=== PATIENT | female | born 1980 | race Caucasian/White ===

== ENCOUNTER 2022-04-12 15:28 | Outpatient (REF) | payer MEDICAID, SELFPAY ==
[2022-04-12 20:13] LABS: HGB 13.1 g/dL (11.2-15.7); MCH 30.5 pg (27.0-33.0); MCHC 33.6 % (32.0-36.0); MCV 91 fL (80-95); MPV 9.5 fL (8.0-11.0); Platelet Count 379 10^3/uL (130-400); RBC 4.29 10^6/uL (3.93-5.22); RDW 12.3 % (11.7-14.6); RDW-SD 40.9 fL; WBC 7.52 10^3/uL (4.4-10.8)
[2022-04-12 20:31] LABS: Anion Gap 9.1 mmol/L (3-11); BUN 9 mg/dL (7-18); CO2 26.9 mmol/L (21.0-32.0); CREATININE 0.8 mg/dL (0.55-1.02); Calcium 9.1 mg/dL (8.5-10.1); Calculated LDL 128 mg/dL (<100); Chloride 104 mmol/L (98-107); Cholesterol 194 mg/dL (<200); Glucose 93 mg/dL (74-106); HDL Cholesterol 47 mg/dL (40-60); Sodium 140 mmol/L (136-145); Triglyceride 95 mg/dL (<150)
== END 2022-04-12 15:29 | disposition home or self-care (01) ==
LOC: NCHCN 15:28
PROVIDERS: Visit Provider Nurse Practitioner Family
DX: E66.9 Obesity, unspecified (principal); Z86.32 Personal history of gestational diabetes; Z87.59 Personal history of other complications of pregnancy, childbirth and the puerperium; I10 Essential (primary) hypertension
CPT/HCPCS: 80048; 80061; 85027

== ENCOUNTER 2022-06-06 10:36 | Outpatient (REF) | payer MEDICAID, SELFPAY ==
--- NOTE | 2022-06-06 09:48 | PAPFT_PTH ---
PATIENT: Aurelia Marcelo LOC: [facility]#:[id number] AGE/SX: 41/F ROOM: RE06/06/[address]: Angeles Espinal : 1980 BED: DIS: 06/06/2022 SPEC #: [id number] RECD: 06/06/22 15:17 STATUS: JESSICA REChelsy #: [id number] JULISSA: 06/06/22 09:[address]: Angeles Espinal DEPT: [facility] Cytology RECD BY: Gloria Burroughs Tissues: 1 - CX/ENDOCX FOR PAP SMEARS Procedures: PAP THIN PREP/UVM Screening HPV DNA PROBE Comments: [id number]
--- OUTSIDE RECORDS SUMMARY | 2022-06-06 10:45 | XMS_ITS | Encounter Summary ---
:1980 Author Organization [facility] Address [address] [place] [address] Care Team Providers Name Role Phone EdesvilleKate solorzano VANDANA Primary Care Provider Encounter Details Date Type Department Care Team Description 12/04/2015 Orders Only Obstetrics and Pschirrer, E Multigravida of [place] [facility] [place] advanced maternal age, [facility] uns pec[address] trimester [address] [place] OBSTETRICS & [id number] GYNECOLOGY [phone] [place] [id number] Social History Tobacco Use Types Packs/Day Years Used Date Never Assessed Sex Assigned at Date Recorded Not on file documented as of this encounter Plan of Treatment Not on filedocumented as of this encounter Results US OB Detailed Morphology (12/29/2015 11:54 AM EST) Anatomical Region Laterality Modality Pelvis, Abdomen Ultrasound Specimen (Source) Anatomical Collection Method Collection Time Re ceived Time Location / / Volume Laterality 12/29/2015 11:19 AM EST Impressions 12/29/2015 2:45 PM EST Impression 2nd Trimester - Detailed Morphology - S ummary Single intrauterine with a ge stational age of 18w 4d based on LMP (08/21/15). Composite age based on the current ultr asound alone is 19w 3d. Current growth parameters are consisten t with prior dating indicating normal growth. Amniotic fluid volume is appropriate fo r gestational age. Detailed anatomic evaluation was performed and no structural abnormalities are noted. I ??viewed the images and agree with norma brown above interpretation. ?Sherly Sorto MD Electronically Signed Final Report ?? 02:45 pm Narrative 12/29/2015 2:45 PM EST OBSTETRICS REPORT ?(Signed Final 12/29/2015 02:45 pm) Patient Info ID #: ? [id number] ?: ??[birth year] (35 yrs) Name: ? AURELIA MARCELO ?Visit Date: 12/29/2015 11:19 am Performed By Performed By: ? Anitha Torres RDMS Attending: ?Macario ANDINO, Ashleigh Gibson. Referred By: ?ROMAN LENZ MD Service(s) Provided ??[facility] - Detailed Morphology - Genetics - [id number] Indications ??MORPH, AMA; E - Coordinates with ??gestational age or more than one week OB History Blood Type: ?? A- ? Height: ??5' 11 ??Weight: ?? 198 ? BMI: ??27.61 Evaluation Num Of Fetuses: ? 1 Heart ? 141 Rate(bpm): Cardiac Activity: ?? Observed, normal r hythm Presentation: ? Cephalic Placenta: ? Anterior P. Cord Insertion: ??Within Normal Limi ts Amniotic Fluid YSABEL FV: ?Appropriate for gestati onal age -------- Biometry -------- BPD: ?44.3 ??mm ? G.Age: ?? 19w 3d OFD: ?58.2 ??mm HC: ?163.5 ??mm ? G.Age: ?? 19w 1d AC: ?145.7 ??mm ? G.Age: ?? 19w 6d FL: ? 29.1 ??mm ? G.Age: ?? 19w 0d HUM: ?29.7 ??mm ? G.Age: ?? 19w 5d CER: ?20.2 ??mm ? G.Age: ?? 19w 1d NFT: ? 3.4 ??mm NB: ?5.0 ??mm LV: ?6.6 ??mm CM: ?3.7 ??mm CI: ?76.1 ??% ? 70 - 86 FL/HC: ? 17.8 ??% ? 16.1 - 18.3 HC/AC: ? 1.12 ?1.09 - 1.39 FL/BPD: ?65.7 ??% FL/AC: ? 20.0 ??% ? 20 - 24 Est. FW: ? 291 ?? gm ?? 0 lb 10 oz Gestational Age LMP: ? 18w 4d ?Date : ??08/21/15 ? FRENCH: ?? 05/27/16 U/S Today: ? 19w 3d ?FRENCH: ?? 05/21/16 Best: ?18w 4d ?? Det. By: ??LMP ??(08/21/15) ?FRENCH: ?? 05/27/16 Targeted Anatomy Central Nervous System Calvarium: ?Within Norm al Limits Intracranial: ? Within Normal Limits Cavum: ?Visualized Lat. Ventricles: ?Within Normal Limits Cerebellum: ? Within Renetta l Limits Choroid Plexus: ? Within Normal Limits Cisterna Magna: ? Within Normal Limits Spine Cervical: ? Visualized Thoracic: ? Visualized Lumbar: ? Visualized Sacral: ? Visualized Head/Neck Face: ? Within No rmal Limits Nuchal Fold: ?Within Renetta l Limits Eyes: ? Visualize d Profile: ?Visualized Thorax Four Chamber: ? Within Normal Limits Cardiac Motion: ? Normal Rhythm R Outflow Tract: ?Visualized L Outflow Tract: ?Visualized Cardiac [place]: ? Visualized 3 Vessel View: ?Visualized Diaphragm: ?Visualized Abdomen Ventral Wall: ? Visualized Stomach: ?Visualized Lt Kidney: ?Visualized Rt Kidney: ?Visualized Bladder: ?Visualized Extremities Lt Humerus: ? Visualized Rt Humerus: ? Visualized Lt Forearm: ? Visualized Rt Forearm: ? Visualized Lt Hand: ?Visualized Rt Hand: ?Visualized Lt Femur: ? Visualized Rt Femur: ? Visualized Lt Lower Leg: ? Visualized Rt Lower Leg: ? Visualized Lt Foot: ?Visualized Rt Foot: ?Visualized Other Umbilical Cord: ? 3 vessel cord Cord Insertion: ? WIthin Normal Limits Comment: ? Nasal Bone: Visualize d Cervix Uterus Adnexa Left Ovary Not visualized Right Ovary Not visualized Procedure Note Sherly Sorto MD - 12/29/2015Form atting of this note might be different from the original. OBSTETRICS REPORT (Signed Final 016 02:45 pm) Patient Info ID #: [id number] : [birth year] (35 y rs) Name: AURELIA MARCELO Visit Date: 12/29 11:19 am Performed By Performed By: Anitha Torres RDMS Attending: Sherly Sorto MD Referred By: ROMAN LENZ MD Service(s) Provided [facility] - Detailed Morphology - Genetics - [id number] Indications MORPH, AMA; E - Coordinates with gestational age or more than one week OB History Blood Type: A- Height: 5'11 Weight: 19 8 BMI: 27.61 Evaluation Num Of Fetuses: 1 Heart 141 Rate(bpm): Cardiac Activity: Observed, normal rhyt hm Presentation: Cephalic Placenta: Anterior P. Cord Insertion: Within Normal Limits Amniotic Fluid YSABEL FV: Appropriate for gestational age -------- Biometry -------- BPD: 44.3 mm G.Age: 19w 3d OFD: 58.2 mm HC: 163.5 mm G.Age: 19w 1d AC: 145.7 mm G.Age: 19w 6d FL: 29.1 mm G.Age: 19w 0d HUM: 29.7 mm G.Age: 19w 5d CER: 20.2 mm G.Age: 19w 1d NFT: 3.4 mm NB: 5.0 mm LV: 6.6 mm CM: 3.7 mm CI: 76.1 % 70 - 86 FL/HC: 17.8 % 16.1 - 18.3 HC/AC: 1.12 1.09 - 1.39 FL/BPD: 65.7 % FL/AC: 20.0 % 20 - 24 Est. FW: 291 gm 0 lb 10 oz Gestational Age LMP: 18w 4d Date: 08/21/15 FRENCH: 6 U/S Today: 19w 3d FRENCH: 05/21/16 Best: 18w 4d Det. By: LMP (08/21/15) ED Targeted Anatomy Central Nervous System Calvarium: Within Normal Limits Intracranial: Within Normal Limits Cavum: Visualized Lat. Ventricles: Within Normal Limits Cerebellum: Within Normal Limits Choroid Plexus: Within Normal Limits Cisterna Magna: Within Normal Limits Spine Cervical: Visualized Thoracic: Visualized Lumbar: Visualized Sacral: Visualized Head/Neck Face: Within Normal Limits Nuchal Fold: Within Normal Limits Eyes: Visualized Profile: Visualized Thorax Four Chamber: Within Normal Limits Cardiac Motion: Normal Rhythm R Outflow Tract: Visualized L Outflow Tract: Visualized Cardiac [place]: Visualized 3 Vessel View: Visualized Diaphragm: Visualized Abdomen Ventral Wall: Visualized Stomach: Visualized Lt Kidney: Visualized Rt Kidney: Visualized Bladder: Visualized Extremities Lt Humerus: Visualized Rt Humerus: Visualized Lt Forearm: Visualized Rt Forearm: Visualized Lt Hand: Visualized Rt Hand: Visualized Lt Femur: Visualized Rt Femur: Visualized Lt Lower Leg: Visualized Rt Lower Leg: Visualized Lt Foot: Visualized Rt Foot: Visualized Other Umbilical Cord: 3 vessel cord Cord Insertion: WIthin Normal Limits Comment: Nasal Bone: Visualized Cervix Uterus Adnexa Left Ovary Not visualized Right Ovary Not visualized IMPRESSION Impression 2nd Trimester - Detailed Morphology - S ummary Single intrauterine with a ge stational age of 18w 4d based on LMP (08/21/15). Composite age based on the current ultr asound alone is 19w 3d. Current growth parameters are consisten t with prior dating indicating normal growth. Amniotic fluid volume is appropriate fo r gestational age. Detailed anatomic evaluation was performed and no structural abnormalities are noted. I viewed the images and agree with the above interpretation. Sherly Sorto MD Electronically Signed Final Report 12/29 02:45 pm E Angeles Pschirrer MD IMG OB ORDERABLES documented in this encounter Visit Diagnoses Diagnosis Multigravida of advanced maternal age, u nspecified trimester Multigravida of advanced maternal age, u nspecified trimester documented in this encounter Care Teams Teacher Vocal Relationship Specialty Start Date End Date Kate Lenz CNM PCP - General 12/30/10 [facility] [address] [place] [address] documented as of this encounter
--- OUTSIDE RECORDS SUMMARY | 2022-06-06 10:45 | XMS_ITS | Encounter Summary ---
:1980 Author Organization [facility] Address [address] [place] [address] Care Team Providers Name Role Phone None, Provider Primary Care Provider Unavailable Encounter Details Date Type Department Care Team Description 11/17/2013 Results Only [facility] Nidhi Olivares ie, [facility] Laboratory Services - [address] [facility] [address] [place] [address] [address] [facility] [place] [address] [phone] Social History Tobacco Use Types Packs/Day Years Used Date Never Assessed Sex Assigned at Date Recorded Not on file documented as of this encounter Plan of Treatment Not on filedocumented as of this encounter Procedures Procedure Name Priority Date/Time Associated Diagnosis Comme nts PAP TEST- RESULT Routine 11/17/2013 0:00 EST Resu lts for this ONLY procedure are i n the results section. documented in this encounter Results PAP TEST- RESULT ONLY (11/17/2013 0:00 EST) Pathology Report: CYTOPATHOLOGY REPORT [facility] Reports generated via electronic interface contain sheila ginal data; however they are lacking the format of the original re port. Caution should be taken when reading/interpreting unfo rmatted reports. Name: ? AURELIA MARCELO ? Accession #: ? [id number] ? : ? 1980 (Age: 33) ??F ?Collect Da te: ? 11/17/2013 ? Location: ? [facility] ? Receive Date: ? 014 ? Provider: JANICE OLIVARES CNM Copy to: ? Final Report SPECIMEN ADEQUACY ? Satisfactory for Evaluation - transformation zone component present GENERAL CATEGORIZATION ? Negative for Intraepithelial Lesion or Malignan cy ?? Last Menstrual Period: Hormonal/Contraceptive status: Intrauterine device Specimen/Source: ??Pap Test, Cervix/Endocervix, ThinPr ep Imaging System with manual evaluation Document reviewed and electronically signed by: ? BOOGIE Cabral(ASCP) ? Report ??Date: 11/22/2013 15:40 HPV with Pap Test ? Date Ordered: ? 11/22/2013 ? Status: ?? Signed Out ?Date Complete: ? 11/24/2013 ? By: ??S ystem Interface ? Date Reported: ? 11/24/2013 ? Interpretation RESULT: Negative for HPV. No E6 or E7 mRNA is detected from HPV types 16,18,31,3 3,35, 39,45,51,52,56,58,59,66, and 68 by tunnel heading inspector media marcelo amplification. Comments Document reviewed and electronically signed by: ? System Interface ? Report date: 11/24/2013 By the signature above, the attending physician certif ies that he/she has personally conducted a gross and/or microscopic examin ation of the described specimens and rendered or confirmed the above diagnosi s. End of Report Specimen Performing Organization Address City/State/ZIP Code Phon e Number [facility] [address] [place] [address] SERVICES [facility] [address] [place] [address] documented in this encounter Visit Diagnoses Not on filedocumented in this encounter Care Teams Ram Press Operator Relationship Specialty Start Date End Date None, Provider PCP - General 08/22/10 documented as of this encounter
--- OUTSIDE RECORDS SUMMARY | 2022-06-06 10:45 | XMS_ITS | Encounter Summary ---
:1980 Author Organization [facility] [place] [address] Care Team Providers Name Role Phone Kate Lenz CNM Primary Care Provider Reason for Visit Reason Comments Ultrasound Ultrasound Finding Consultation (Routine) - Closed Specialty Diagnoses / Procedures Referred By Contact Refer red To Contact Maternal and Diagnoses IUGR in previous , HTN Kate Lenz CNM [facility] Supervisor 5l Medicine / Obstetrics Procedures IUGR in previous , HTN [facility] and Gyne[facility] [address] [place] [phone] Phone: Fax: Referral ID Status Reason Start Date Expiration Date Visits Requ ested Visits Authorized [id number] Closed 11/30/2015 11/29/2016 2 2 Encounter Details Date Type Department Care Team Description 12/29/2015 Procedure visit Obstetrics and Sherly Morillo ( [place] [facility] [place] Arthur maternal age) [facility] multigrav marshall 35+, [facility] second trimester [place], [place] OBSTETRICS & [id number] GYNECOLOGY [phone] [place], [place] [address] Social History Tobacco Use Types Packs/Day Years Used Date Never Smoker Alcohol Use Standard Drinks/Week Comments No 0 (1 standard drink = 0.6 oz pure alcoho l) Sex Assigned at Date Recorded Not on file documented as of this encounter Last Filed Vital Signs Vital Sign Reading Time Taken Comments Blood Pressure 116/68 12/29/2015 10:17 AM EST Pulse - - Temperature - - Respiratory Rate - - Oxygen Saturation - - Inhaled Oxygen Concentration - - Weight 93.5 kg (206 lb 3.2 oz) 12/29/2015 10:17 AM EST Height 177.8 cm (5' 10) 12/29/2015 10:17 AM EST Body Mass Index 29.59 12/29/2015 10:17 AM EST documented in this encounter Progress Notes Sherly Morillo MD - 01/04/2016 5:53 AM EST Diagnosis/Maternal Medicine Consult Note Aurelia Marcelo is a 35 y.o. year old female who is at 18w4d gestation. She is seen in consultation at the request of Kate Lenz CNM for evaluation of AMA and previous with GHTN and IUGR. She was seen today for maternal- medicine consultation, ultrasound evaluation and genetic counseling with Hernán Webb. She reports that in her first 2 pregnancies she was normotensive and had babies weighing greater than 9 lbs. Her most recent in 2010 was complicated by gestational hypertension and IUGR with delivery by of an weighing 4# 10oz at 38 weeks. She denies HTN outside of . Her integrated screen was low risk for aneuploidy and neural tube defects. Review of Systems Constitutional:feels well Movement: normal Contractions: none Leaking: None Bleeding: None There are no active problems to display for this patient. Past Medical History Diagnosis Date ??? Gestational hypertension 2011 onset 37 weeks Past Surgical History Procedure Laterality Date ??? section, low transverse Family History Problem Relation Age of Onset ??? Hypertension Father ??? Hypertension Sister ??? Type 2 Diabetes Paternal Grandmother Social History Occupational History ??? Not on file. Social History Main Topics ??? Smoking status: Never Smoker ??? Smokeless tobacco: Not on file ??? Alcohol Use: No ??? Drug Use: No ??? Sexual Activity: Not on file OB History Para Term AB TAB SAB Ectopic Multiple Living 4 3 3 3 # Outc Date GA Lbr Neil/2nd Wgt Sex Del Anes PTL Lv 1 Term 12/2001 40w0d 4.167 kg (9 lb 3 oz) M Vag-Spont N Y 2 Term 04/2005 40w0d 4.252 kg (9 lb 6 oz) F Vag-Spont N Y 3 Term 12/2010 38w3d 2.098 kg (4 lb 10 oz) F LWR SEG BORDEN N Y 4 Current Current Outpatient Prescriptions Medication Sig Dispense Refill ??? aspirin 81 mg Tablet, Delayed Release (E.C.) Take 81 mg by mouth daily. ??? VIT/FE FUMARATE/FA ( VIT-IRON FUMARATE-FA ORAL) No current facility-administered medications for this visit. No Known Allergies Ultrasound Date: 12/28/2015 Amniotic fluid volume normal Presentation cephalic Placenta anterior Growth appropriate for gestational age anatomy unremarkable Physical Exam BP 116/68 mmHg Ht 177.8 cm (5' 10) Wt 93.532 kg (206 lb 3.2 oz) BMI 29.59 kg/m2 LMP 08/21/2015 ? No General: alert, well appearing HEENT: normocephalic, atraumatic Abdomen: Soft, nontender Neurologic:alert, oriented, normal speech, no focal findings or movement disorder noted Psychiatric: Affect is Appropriate. Assessment and Recommendations: 35 y.o. year old female at 18w4d weeks gestation, referred for counseling regarding . I spent 40 minutes in face to face time with the patient of which 95% was in direct counseling, and a totalof 30 minutes in patient care reviewing records and discussing her with other consultants. We reviewed the ultrasound findings and limitations of ultrasound in detecting feal anomalies and aneuploidy. She was inofrmed of the availability of amniocentesis and declined. We reviewed her previous history. She likely had at least gestational hypertension if not preeeclampsia. I agree with taking a bASA 81mg daily through 36 weeks. I recommend close BP surviellance and urine protein assessment. She should have an ultrasound for growth assessment at 28 and32 weeks. We briefly discussed vs ERCS. She remains undecided and will discuss with her local providers at future visits. I appreciate the opportunity to be involved in this patients care, and am available if further questions should arise. SHERLY MORILLO MD 01/04/2016 Cc: Kate Lenz CNM [facility] [address] [place] [address] , with copy of ultrasound report documented in this encounter Plan of Treatment Not on filedocumented as of this encounter Visit Diagnoses Diagnosis AMA (advanced maternal age) multigravida 35+, second trimester documented in this encounter Care Teams Trash Hauler Relationship Specialty Start Date End Date Kate Lenz CNM PCP - General 12/30/10 [facility] [address] [place] [address] documented as of this encounter
--- OUTSIDE RECORDS SUMMARY | 2022-06-06 10:45 | XMS_ITS | Encounter Summary ---
:1980 Author Organization [facility] Address [address] [place] [address] Care Team Providers Name Role Phone None, Provider Primary Care Provider Unavailable Encounter Details Date Type Department Care Team Description 11/16/2015 Phlebotomy Only [facility] - Coat Operator Insulator, [facility] Outpatient [address] [place] [address] Social History Tobacco Use Types Packs/Day Years Used Date Never Assessed Sex Assigned at Date Recorded Not on file documented as of this encounter Plan of Treatment Not on filedocumented as of this encounter Visit Diagnoses Not on filedocumented in this encounter Care Teams Queen'S Counsel Relationship Specialty Start Date End Date None, Provider PCP - General 08/22/10 documented as of this encounter
--- OUTSIDE RECORDS SUMMARY | 2022-06-06 10:45 | XMS_ITS | Encounter Summary ---
:1980 Author Organization [facility] Address [address] [place] [address] Care Team Providers Name Role Phone None, Provider Primary Care Provider Unavailable Encounter Details Date Type Department Care Team Description 05/16/2016 Results Only [facility] Jimbo Coughlin MD [phone] [address] [facility] [address] [place], [place] [address] (Wo rk) Social History Tobacco Use Types Packs/Day Years Used Date Never Assessed Sex Assigned at Date Recorded Not on file documented as of this encounter Plan of Treatment Not on filedocumented as of this encounter Procedures Procedure Name Priority Date/Time Associated Diagnosis Comme nts SURGICAL PATHOLOGY Routine 05/16/2016 11:15 Resul ts for this EDT procedure are i n the results section. documented in this encounter Results SURGICAL PATHOLOGY (05/16/2016 11:15 EDT) Pathology Report: SURGICAL PATHOLOGY REPORT [facility] Reports generated via electronic interface contain sheila ginal data; LABORATORY however they are lacking the format of the original re port. SERVICES Caution should be taken when reading/interpreting unfo rmatted reports. Name: ? AURELIA MARCELO ? Accession #: ? [id number] ? : ? 1980 (Age: 35 ) ??F ? Collect Date: ? 05/16/2016 ? Location: ? [facility] ? Receive Date: ? 05/18/20 16 ? Provider: JIMBO COUGHLIN MD Copy to: VAISHALI YOUNG MD ? Final Pathologic Diagnosis: A. FALLOPIAN TUBE, SEGMENT OF LEFT, TUBAL LIGATION: - ??Simple paratubal cyst; full cross sections identif ied. B. FALLOPIAN TUBE, SEGMENT OF RIGHT, TUBAL LIGATION: - ??Simple peritubal cyst; full cross sections identif ied. Document reviewed and electronically signed by: NIALL LAWSON MD Report ??Date: 05/21/2016 15:40 By the signature above, the attending physician certif ies that he/she has personally conducted a gross and/or microscopic examin ation of the described specimens and rendered or confirmed the above diagnosi s. Specimen(s) Received: A. ?Lt fallopian tube B. ? Rt fallopian tube Clinical History: Sterilization; clinical diagnosis code: ??Z30.2 Gross Description: A. ?Received in formalin labelled with proper p atient identification (initials M, C) and L fallo pian tube is a tubular structure (1.5 cm in length x 0.5 cm diameter). The serosa is jay-butterfield dull and smooth. There is a single peritubal cyst (0.5 x 0.5 x 0.4 cm). Cut surfaces reve al an unremarkable pinpoint lumen. Cable Maker cross-sections in cluding cyst are submitted in A1. B. ?Received in formalin labelled with proper p atient identification (initials M, C) and R fallo pian tube is a tubular structure (2.0 cm in length x 0.6 cm in diameter). The s erosa is butterfield-purple, smooth, and dull. Cut surfaces reveal an unremarkable lumen. Two cross sections are s ubmitted in B1. 05/20/2016 3:50 PM End of Report Specimen Performing Organization Address City/State/ZIP Code Phon e Number [facility] [address] [place] [address] SERVICES documented in this encounter Visit Diagnoses Not on filedocumented in this encounter Care Teams Tele Grout Sewer Line Repairer Relationship Specialty Start Date End Date None, Provider PCP - General 08/22/10 documented as of this encounter
--- OUTSIDE RECORDS SUMMARY | 2022-06-06 10:45 | XMS_ITS | Encounter Summary ---
:1980 Author Organization [facility] Address [facility] [place] [address] Care Team Providers Name Role Phone TwispKate solorzano VANDANA Primary Care Provider Encounter Details Date Type Department Care Team Description 12/29/2015 Hospital Encounter Radiology at [facility] Frannie Wade Multigravida of [facility] MD Angeles advanced maternal Drive [facility] age, unspecified [place], [place] [address] trimester [id number] OBSTETRICS & [phone] [place] [address] Social History Tobacco Use Types Packs/Day Years Used Date Never Smoker Sex Assigned at Date Recorded Not on file documented as of this encounter Medications at Time of Discharge Medication Sig Dispensed Refills Start Date End Date aspirin 81 mg Tablet, Take 81 mg by mouth 0 Delayed Release (E.C.) daily. VIT/FE 0 01/02/2011 FUMARATE/FA ( VIT-IRON FUMARATE-FA ORAL) documented as of this encounter Plan of Treatment Not on filedocumented as of this encounter Procedures Procedure Name Priority Date/Time Associated Diagnosis Comme nts US OB DETAILED Routine 12/29/2015 11:54 Multigravida of Result s for this MORPHOLOGY AM EST advanced maternal procedure are in age, unspecified the results trimester section. documented in this encounter Results US OB Detailed Morphology [...] 02:45 pm) Patient Info ID #: ? [id number] ?: ??[birth year] (35 yrs) Name: ? AURELIA MARCELO ?Visit Date: 12/29/2015 11:19 am Performed By Performed By: ? Anitha Torres RDMS Attending: ?Macario ANDINO, Ashleigh [place] Referred By: ?ROMAN LENZ MD Service(s) Provided ??[facility] - Detailed Morphology - Genetics - [id number] Indications ??MORPH, AMA; E - Coordinates with [...] ?65.7 ??% FL/AC: ? 20.0 ??% ? Est. FW: ? 291 ?? gm ?? [...] Tract: ?Visualized L Outflow Tract: ?Visualized Cardiac [place]: ? Visualized 3 Vessel View: ?Visualized Diaphragm: [...] 016 02:45 pm) Patient Info ID #: [id number] : [birth year] (35 y rs) Name: AURELIA MARCELO Visit Date: 12/29 11:19 am Performed By Performed By: Anitha Torres RDMS Attending: Sherly Sorto MD Referred By: ROMAN LENZ MD Service(s) Provided [facility] - Detailed Morphology - Genetics - [id number] Indications MORPH, AMA; E - Coordinates with [...] Tract: Visualized L Outflow Tract: Visualized Cardiac [place]: Visualized 3 Vessel View: Visualized Diaphragm: Visualized [...] Final Report 12/29 02:45 pm E Angeles Wade MD IMG US OB ORDERABLES documented in this encounter Visit Diagnoses Diagnosis Multigravida of advanced maternal age, u nspecified trimester documented in this encounter Care Teams Truck Driver'S Offsider Relationship Specialty Start Date End Date Kate Lenz CNM PCP - General 12/30/10 [facility] [address] [place] [address] documented as of this encounter
--- OUTSIDE RECORDS SUMMARY | 2022-06-06 10:45 | XMS_ITS | Encounter Summary ---
:1980 Author Organization [facility] Address [address] [place] [address] Care Team Providers Name Role Phone Unavailable Primary Care Provider Unavailable Encounter Details Date Type Department Care Team Description 06/28/2005 Results Only [facility] - Aung Lara, JOCELYNE Maple conversion [address] [facility],[address] [place], [place] [address] [place] [address] [id number] [phone] Social History Tobacco Use Types Packs/Day Years Used Date Never Assessed Sex Assigned at Date Recorded Not on file documented as of this encounter Plan of Treatment Not on filedocumented as of this encounter Procedures Procedure Name Priority Date/Time Associated Diagnosis Comme nts CYTOPATHOLOGY Routine 06/28/2005 0:00 EDT Results for this procedure are i n the results section . documented in this encounter Results CYTOPATHOLOGY (06/28/2005 0:00 EDT) Pathology Report: CYTOPATHOLOGY REPORT [facility] Reports generated via electronic interface contain sheila ginal data; however they are lacking the format of the original re port. Caution should be taken when reading/interpreting unfo rmatted reports. Name: ? AURELIA MARCELO ? Accession #: ? [id number] : ? 1980 (Age: 24) ??F ?Collect Date: ? 06/04 Location: ? [facility] ? Receive Date : ? 07/01/2005 Provider: ?ROMAN LARA CNM Copy to: ? Specimen/Source: ? ThinPrep Pap Test, Cervix/Endocervix, processed on PLUMgrid ThinPrep Imaging System, with manual evaluation Last Menstrual Period: ? 05/23/05 Menstrual/ Status: ? Post Hormonal/Contraceptive Status: ? Orthotricyclen Other: ? HPVA - HPV testing requested if ASC-US on the current ThinPrep Pap test. ? SPECIMEN ADEQUACY ? Satisfactory for Evaluation - transformation zone component present GENERAL CATEGORIZATION ? Negative for Intraepithelial Lesion or Malignan cy INTERPRETATION ? Reactive cellular joao nges associated with inflammation present (includes repair). ? Document reviewed and electronically signed by: ? JERRI EVANS MD ? Report Date: ??07/05/2005 09:33 End of Report Specimen Performing Organization Address City/State/ZIP Code Phon e Number [facility] [address] [place] [address] SERVICES [facility] [address] [place] [address] documented in this encounter Visit Diagnoses Not on filedocumented in this encounter
--- OUTSIDE RECORDS SUMMARY | 2022-06-06 10:45 | XMS_ITS | Encounter Summary ---
:1980 Author Organization [facility] Address [address] [place] [address] Care Team Providers Name Role Phone None, Provider Primary Care Provider Unavailable Encounter Details Date Type Department Care Team Description 11/16/2015 Hospital Encounter [facility] MD Bulmaro [phone] [address] [facility] [place] [address] (Wo rk) Social History Tobacco Use Types Packs/Day Years Used Date Never Assessed Sex Assigned at Date Recorded Not on file documented as of this encounter Discharge Diagnoses Diagnosis Z36 Encounter for screening of mother-Z36[ICD-10-CM] O09.521 Supervision of elderly multigrav marshall, first trimester-O09.521[ICD-10-CM] documented in this encounter Discharge Disposition Disposition Code Departure Means Destination Home or Self Custodial documented in this encounter Plan of Treatment Not on filedocumented as of this encounter Procedures Procedure Name Priority Date/Time Associated Diagnosis Comme nts PATHOLOGY - SCANNED 12/20/2015 14:26 EST documented in this encounter Results PATHOLOGY - SCANNED (12/20/2015 14:26 EST) Specimen Narrative This result has an attachment that is no t available. documented in this encounter Visit Diagnoses Not on filedocumented in this encounter Care Teams Administration Physician Relationship Specialty Start Date End Date None, Provider PCP - General 08/22/10 documented as of this encounter
--- OUTSIDE RECORDS SUMMARY | 2022-06-06 10:45 | XMS_ITS | Encounter Summary ---
:1980 Author Organization [facility] [place] [address] Care Team Providers Name Role Phone [place]amm[place] SpringKate solorzano CNM Primary Care Provider Encounter Details Date Type Department Care Team Description 03/06/2016 Hospital Encounter Ultrasound at [facility] Kate Lara, growth restriction; [facility] CNM Secondary hypertension, unspecified Drive [address] [facility] [address] [place], [place] [phone] [address] Social History Tobacco Use Types Packs/Day Years [...] Date/Time Associated Diagnosis Comme nts US OB FOLLOW UP Routine 03/06/2016 10:58 AM growth Resul ts for this EDT restriction procedure are in Secondary the results hypertension, section. unspecified documented in this encounter Results US OB Follow Up Evaluation (03/06/2016 10:58 AM EDT) Anatomical Region Laterality Modality Pelvis, Abdomen Ultrasound Specimen (Source) Anatomical Collection Method Collection Time Re ceived Time Location / / Volume Laterality 03/06/2016 10:55 AM EDT Impressions 03/06/2016 11:06 AM EDT Impression 3rd Trimester Summary Single intrauterine with a ge stational age of 28w 2d based on LMP ??(08/21/15) Composite age based on the current ultr asound alone is 30w 5d. Estimated weight corresponds to t he > 95th percentile for 28w 2d c/w an LGA fetus. Amniotic fluid volume is upper normal, YSABEL = 20.88 cm, MVP = 6.2 cm Anatomical survey is limited due to the late gestational age but no abnormality seen. I ??viewed the images and agree with norma brown above interpretation. ? Monroe Loya MD Electronically Signed Final Report ?? 11:06 am Narrative 03/06/2016 11:06 AM EDT OBSTETRICS REPORT ?(Signed Final 03/06/2016 11:06 am) Patient Info ID #: ? [id number] ?: ??[birth year] (35 yrs) Name: ? AURELIA MARCELO ?Visit Date: 03/06/2016 10:55 am Performed By Performed By: ? Lucy Lawrence RDMS Attending: ?Vincenzo ANDINO, Wayne Martinez Associate: ?Prem Layton MD Referred By: ?ROMAN LARA MD Service(s) Provided ??UOBFOL - Efw - Growth - [place] - I [id number] ? [id number] Indications ??OB FOLLOW UP, HX IUGR, HTN; E - ??Coordinates with gestational age or m ore ??than one week OB History Blood Type: ?? A- ? Height: ??5' 11 ?? Weight: ??198 ? BMI: ??27.61 Evaluation Num Of Fetuses: ? 1 Heart ? 132 Rate(bpm): Cardiac Activity: ?? Observed, normal r hythm Presentation: ? Cephalic Placenta: ? Anterior P. Cord Insertion: ??Within Normal Limi ts Amniotic Fluid YSABEL FV: ?Normal YSABEL Sum: ? 20.88 ?? cm ?Larg Pckt: ?6.2 ??cm RUQ: ?? 6.07 ?cm ?LUQ: ?? 3.99 ?cm RLQ: ?? 4.62 ?cm ?LLQ: ?? 6.2 ? cm -------- Biometry -------- BPD: ?76.3 ??mm ? G.Age: ?? 30w 4d ?94 ?? % OFD: ?98.8 ??mm HC: ?275.2 ??mm ? G.Age: ?? 30w 0d ?74 ?? % AC: ?276.1 ??mm ? G.Age: ?? 31w 5d ?> 97 ?? % FL: ? 58.6 ??mm ? G.Age: ?? 30w 4d ?91 ?? % HUM: ?50.5 ??mm ? G.Age: ?? 29w 4d ?72 ?? % CER: ?34.5 ??mm ? G.Age: ?? 29w 5d ?75 ?? % NB: ?10.66 ??mm LV: ? 6.66 ??mm CM: ? 8.88 ??mm CI: ?77.2 ??% ? 70 - 86 FL/HC: ? 21.3 ??% ? 18.8 - 20.6 HC/AC: ? 1.00 ?1.05 - 1.21 FL/BPD: ?76.8 ??% ? 71 - 87 FL/AC: ? 21.2 ??% ? 20 - 24 Est. FW: ?1698 ?? gm ?3 lb 12 o z ?> 95 ?? % Gestational Age LMP: ? 28w 2d ?Date : ??08/21/15 ? FRENCH: ?05/27/16 U/S Today: ? 30w 5d ?FRENCH: ?05/10/16 Best: ?28w 2d ?? Det. By: ??LMP ??(08/21/15) ?FRENCH: ?05/27/16 ------- Anatomy ------- Cranium: ?Visualized Cavum: ?Visualized Ventricles: ? Visualized Choroid Plexus: ? Visualized Cerebellum: ? Visualized Posterior Fossa: ?Visualized Nuchal Fold: ?Not evaluated a t this gestational age Face: ? Limited view s Heart: ?4-chamber vi ew appears normal RVOT: ? Visualized LVOT: ? Visualized Diaphragm: ?Visualized Stomach: ?Visualized Abdomen: ?Within Normal Limits Abdominal Wall: ? Not visualized du e to late gestational a Cord Vessels: ? 3-vessels- WNL Kidneys: ?Visualized Bladder: ?Visualized Spine: ?Limited view s Upper ? Limited view s Extremities: Lower ? Limited view s Extremities: Cervix Uterus Adnexa Left Ovary Not visualized Right Ovary Not visualized Procedure Note Monroe Loya MD - 03/06/2016Format ting of this note might be different from the original. OBSTETRICS REPORT (Signed Final 016 11:06 am) Patient Info ID #: [id number] : [birth year] (35 y rs) Name: AURELIA MARCELO Visit Date: 03/06 10:55 am Performed By Performed By: Lucy Lawrence RDMS Attending: Monroe Loya MD Associate: Prem Layton MD Referred By: ROMAN LARA MD Service(s) Provided UOBFOL - Efw - Growth - [place] - IMG [id number] Indications OB FOLLOW UP, HX IUGR, HTN; E - Coordinates with gestational age or mor e than one week OB History Blood Type: A- Height: 5'11 Weight: 19 8 BMI: 27.61 Evaluation Num Of Fetuses: 1 Heart 132 Rate(bpm): Cardiac Activity: Observed, normal rhyt hm Presentation: Cephalic Placenta: Anterior P. Cord Insertion: Within Normal Limits Amniotic Fluid YSABEL FV: Normal YSABEL Sum: 20.88 cm Larg Pckt: 6.2 cm RUQ: 6.07 cm LUQ: 3.99 cm RLQ: 4.62 cm LLQ: 6.2 cm -------- Biometry -------- BPD: 76.3 mm G.Age: 30w 4d 94 % OFD: 98.8 mm HC: 275.2 mm G.Age: 30w 0d 74 % AC: 276.1 mm G.Age: 31w 5d > 97 % FL: 58.6 mm G.Age: 30w 4d 91 % HUM: 50.5 mm G.Age: 29w 4d 72 % CER: 34.5 mm G.Age: 29w 5d 75 % NB: 10.66 mm LV: 6.66 mm CM: 8.88 mm CI: 77.2 % 70 - 86 FL/HC: 21.3 % 18.8 - 20.6 HC/AC: 1.00 1.05 - 1.21 FL/BPD: 76.8 % 71 - 87 FL/AC: 21.2 % 20 - 24 Est. FW: 1698 gm 3 lb 12 oz > 95 % Gestational Age LMP: 28w 2d Date: 08/21/15 FRENCH: 6 U/S Today: 30w 5d FRENCH: 05/10/16 Best: 28w 2d Det. By: LMP (08/21/15) ED ------- Anatomy ------- Cranium: Visualized Cavum: Visualized Ventricles: Visualized Choroid Plexus: Visualized Cerebellum: Visualized Posterior Fossa: Visualized Nuchal Fold: Not evaluated at this gest ational age Face: Limited views Heart: 4-chamber view appears normal RVOT: Visualized LVOT: Visualized Diaphragm: Visualized Stomach: Visualized Abdomen: Within Normal Limits Abdominal Wall: Not visualized due to l ate gestational a Cord Vessels: 3-vessels- WNL Kidneys: Visualized Bladder: Visualized Spine: Limited views Upper Limited views Extremities: Lower Limited views Extremities: Cervix Uterus Adnexa Left Ovary Not visualized Right Ovary Not visualized IMPRESSION Impression 3rd Trimester Summary Single intrauterine with a ge stational age of 28w 2d based on LMP (08/21/15) Composite age based on the current ultr asound alone is 30w 5d. Estimated weight corresponds to t he > 95th percentile for 28w 2d c/w an LGA fetus. Amniotic fluid volume is upper normal, YSABEL = 20.88 cm, MVP = 6.2 cm Anatomical survey is limited due to the late gestational age but no abnormality seen. I viewed the images and agree with the above interpretation. Monroe Loya MD Electronically Signed Final Report 03/06 11:06 am Kate Lara CNM IMG US OB ORDERABLES documented in this encounter Visit Diagnoses Diagnosis growth restriction Unspecified growth retardation, un specified (weight) Secondary hypertension, unspecified documented in this encounter Care Teams Sustainable Design Consultant Relationship Specialty Start Date End Date Kate Lara CNM PCP - General 12/30/10 [facility] [address] [place] [address] documented as of this encounter
--- OUTSIDE RECORDS SUMMARY | 2022-06-06 10:45 | XMS_ITS | Encounter Summary ---
:1980 Author Organization [facility] Address [address] [place] [address] Care Team Providers Name Role Phone None, Provider Primary Care Provider Unavailable Encounter Details Date Type Department Care Team Description 05/17/2016 Hospital Encounter [facility] Unknown, Provider, [facility] [address] [facility] [phone] [place] [address] (Work) [phone] Social History Tobacco Use Types Packs/Day Years Used Date Never Assessed Sex Assigned at Date Recorded Not on file documented as of this encounter Discharge Disposition Disposition Code Departure Means Destination Home or Self Snf documented in this encounter Plan of Treatment Not on filedocumented as of this encounter Visit Diagnoses Not on filedocumented in this encounter Care Teams Gun Stock Maker Relationship Specialty Start Date End Date None, Provider PCP - General 08/22/10 documented as of this encounter
--- OUTSIDE RECORDS SUMMARY | 2022-06-06 10:45 | XMS_ITS | Encounter Summary ---
:1980 Author Organization [facility] Address [address] [place] [address] Care Team Providers Name Role Phone Antonia Lo ROOM SERVICE ASSOCIATE Primary Care Provider None, Provider Primary Care Provider Unavailable Encounter Details Date Type Department Care Team Description 05/30/2004 Hospital Encounter [facility] - Stevie Hutton CNM Other [address] [place] [address] [place] [address] [place], [place] [address] [phone] Social History Tobacco Use Types Packs/Day Years Used Date Never Assessed Sex Assigned at Date Recorded Not on file documented as of this encounter Plan of Treatment Not on filedocumented as of this encounter Procedures Procedure Name Priority Date/Time Associated Comments Diagnosis [facility] INTEGRATED SCREEN 11/16/2015 10:19 Re sults for this EST procedure are i n the results section. HPV DETECTION, HIGH Routine 08/03/2009 19:45 Resu lts for this RISK TYPES EDT procedure are i n the results section. CYTOPATHOLOGY Routine 08/03/2009 0:00 Results for this EDT procedure are i n the results section. documented in this encounter Results [facility] INTEGRATED SCREEN (11/16/2015 10:19 EST) Anatomical Region Laterality Modality Other Specimen Narrative [facility] RADIOLOGY MATERNAL FE EMMY MEDICINE ACC - 11/16/2015 11:15 EST Indication Advanced maternal age. History ======= General History Height 170 cm Height (ft) ?5 ft Height (in) ?7 in Previous Outcomes ?4 Para ?? 3 Children born (T) ??3 Children born (P) ??0 Living children (L) ?3 Abortions (A) ??0 Other: Mode of last delivery: Maternal Assessment Height 170 cm Height (ft) ?5 ft Height (in) ?7 in Physical Exam Initial weight 90 kg Initial weight (lb) ?198 lb Initial BMI ?31.00 kg/m? Number of fetuses: 1. Dating ======= Method of dating: ??based on the LMP LMP on: ?08/21/2015 GA by LMP ??12 w + 3 d FRENCH by LMP : ? 016 Ultrasound examination on: 11/16/2015 GA by U/S based upon: ??CRL GA by U/S ??13 w + 2 d FRENCH by U/S: ?05/21/2016 Assigned: ??Dating performed on 6 Based on the LMP Assigned GA ?12 w + 3 d Assigned FRENCH: ??05/27/2016 General Evaluation Cardiac activity: present. Cord vessels: normal insertion. Biometry CRL ?70.2 mm 92% 13w 2d Hadlock NT 2.8 mm FHR ?155 bpm 16% Nicolaides Risk Parameters History Age (at exam date) 35 yrs. U/S Markers Nasal bone: present. cardiac activ ity: present. FHR 155 bpm. Method ======== Voluson E10, Transabdominal ultrasound e xamination. Sufficient. Impression NOTE: This study was ordered as an NT ON LY so maternal and anatomy assessments were not performed. 38373 Nuchal translucency measurement This is a loya gestation. Nuchal translucency is 2.8 mm. Omphalocele is not present. To complete the integrated screen, Thing Labson d trimester serum must be drawn and sent to [facility], preferably at 15-16 weeks'. Follow-up Follow-up as clinically indicated. Procedure Note Ayala Rodríguez MD - 11/16/2015 Indication Advanced maternal age. History ======= General History Height 170 cm Height (ft) 5 ft Height (in) 7 in Previous Outcomes 4 Para 3 Children born (T) 3 Children born (P) 0 Living children (L) 3 Abortions (A) 0 Other: Mode of last delivery: Maternal Assessment Height 170 cm Height (ft) 5 ft Height (in) 7 in Physical Exam Initial weight 90 kg Initial weight (lb) 198 lb Initial BMI 31.00 kg/m? Number of fetuses: 1. Dating ======= Method of dating: based on the LMP LMP on: 08/21/2015 GA by LMP 12 w + 3 d FRENCH by LMP : 05/27/2016 Ultrasound examination on: 11/16/2015 GA by U/S based upon: CRL GA by U/S 13 w + 2 d FRENCH by U/S: 05/21/2016 Assigned: Dating performed on 11/16/2015 Based on the LMP Assigned GA 12 w + 3 d Assigned FRENCH: 05/27/2016 General Evaluation Cardiac activity: present. Cord vessels: normal insertion. Biometry CRL 70.2 mm 92% 13w 2d Hadlock NT 2.8 mm FHR 155 bpm 16% Nicolaides Risk Parameters History Age (at exam date) 35 yrs. U/S Markers Nasal bone: present. cardiac activ ity: present. FHR 155 bpm. Method ======== Voluson E10, Transabdominal ultrasound e xamination. Sufficient. Impression NOTE: This study was ordered as an NT ON LY so maternal and anatomy assessments were not performed. 19144 Nuchal translucency measurement This is a loya gestation. Nuchal translucency is 2.8 mm. Omphalocele is not present. To complete the integrated screen, secon d trimester serum must be drawn and sent to [facility], preferably at 15-16 weeks'. Follow-up Follow-up as clinically indicated. Performing Organization Address [facility] Phon e Number [facility] RADIOLOGY MATERNAL MEDICINE ACC HUMAN PAPILLOMA VIRUS DNA TEST (08/03/2009 19:45 EDT) Specimen Description Cervix, ThinPrep [facility] vial Result Negative for HPV [facility] types 16, 18, 31, 33, 35, 39, 45, 51, 52, 56, 58, 59, and 68. Report Status Final [facility] 08/17/2009 Specimen Performing Organization Address [facility] Phon e Number [facility] [address] [place] [address] SERVICES [facility] [address] [place] [address] CYTOPATHOLOGY (08/03/2009 0:00 EDT) Pathology Report: CYTOPATHOLOGY REPORT ? [facility] ? LAB Reports generated via electr [employer] interface contain original data; ? however they are lacking the format of the original report. ? Caution should be taken when reading/interpreting unformatted reports. ? Name: ? LAUREN, CRYSTAL M ? Accession #: ? [id number] ? : ? 1980 (Age: 28) ??F ?Collect Date: ? 08/03/2009 ? Location: ? [facility] ? Receive Date: ? 08/07/2009 ? Provider: ?ROMAN BRO MLEY CNM ? Copy to: ? Specimen/Source: ? Pap Test, Cervix/Endocervix, ThinPrep Imaging System ? with manual evaluation ? Last Menstrual Period: ? 09/17/09 ? Hormonal/Contraceptive Statu s: ? Yes: Trinessa ? Other: ? HPVDX - HPV testing requeste d regardless of diagnosis on current ThinPrep Pap ?? test. ? SPECIMEN ADEQUACY ? Satisfactory for Eval uation ? - transformation zone compon ent present ? - scant squamous epithelial component secondary to excessive blood ? GENERAL CATEGORIZATION ? Negative for Intraepi thelial Lesion or Malignancy ? Document reviewed and electr onically signed by: ? Jaqueline Sheldon, [place]( CP) ? Report Date: ??10/08/ 2009 11:11 ? End of Report ? Specimen Performing Organization Address City/State/[facility] Code Phon e Number [facility] [address] [place] [address] SERVICES [facility] [address] [place] [address] documented in this encounter Visit Diagnoses Not on filedocumented in this encounter Care Teams Motion Picture Projectionist Relationship Specialty Start Date End Date Antonia Lo FNP PCP - General 08/21/10 08/21/10 [address] [place] [address] None, Provider PCP - General 08/22/10 documented as of this encounter
--- OUTSIDE RECORDS SUMMARY | 2022-06-06 10:45 | XMS_ITS | Encounter Summary ---
:1980 Author Organization [facility] Address [address] [place] [address] Care Team Providers Name Role Phone Unavailable Primary Care Provider Unavailable Encounter Details Date Type Department Care Team Description 07/22/2006 Results Only [facility] - Hellen Olivares CNM Maple conversion [address] [facility] [place] [address] [place], [place] [address] [phone] Social History Tobacco Use Types Packs/Day Years Used Date Never Assessed Sex Assigned at Date Recorded Not on file documented as of this encounter Plan of Treatment Not on filedocumented as of this encounter Procedures Procedure Name Priority Date/Time Associated Diagnosis Comme nts CYTOPATHOLOGY Routine 07/22/2006 0:00 EDT Results for this procedure are i n the results section . documented in this encounter Results CYTOPATHOLOGY (07/22/2006 0:00 EDT) Pathology Report: CYTOPATHOLOGY REPORT [facility] Reports generated via electronic interface contain sheila ginal data; however they are lacking the format of the original re port. Caution should be taken when reading/interpreting unfo rmatted reports. Name: ? AURELIA MARCELO ? Accession #: ? [id number] : ? 1980 (Age: 25) ??F ?Collect Date: ? 07/04 Location: ? [facility] ? Receive Date : ? 07/23/2006 Provider: ?JANICE OLIVARES CNM Copy to: ? Specimen/Source: ? ThinPrep Pap Test, Cervix/Endocervix, processed on [employer] ThinPrep Imaging System, with manual evaluation Last Menstrual Period: ? 06/24/06 Hormonal/Contraceptive Status: ? Orthotricyclen Other: ? HPVA - HPV testing requested if ASC-US on the current ThinPrep Pap test. ? SPECIMEN ADEQUACY ? Satisfactory for Evaluation - transformation zone component present GENERAL CATEGORIZATION ? Negative for Intraepithelial Lesion or Malignan cy ? Document reviewed and electronically signed by: ? Elaine Miranda, SCT(ASCP) ? Report Date: ??07/28/2006 09:36 End of Report Specimen Performing Organization Address City/State/ZIP Code Phon e Number [facility] [address] [place] [address] SERVICES [facility] [address] [place] [address] documented in this encounter Visit Diagnoses Not on filedocumented in this encounter
--- OUTSIDE RECORDS SUMMARY | 2022-06-06 10:45 | XMS_ITS | Encounter Summary ---
:1980 Author Organization [facility] Address [address] [place] [address] Care Team Providers Name Role Phone Antonia Lo SUBSTATION OPERATOR AUTOMATIC Primary Care Provider None, Provider Primary Care Provider Unavailable Encounter Details Date Type Department Care Team Description 05/14/2001 Hospital Encounter [facility] - Stevie Olivares, [facility] [address] [facility] [place], [place] [phone] Other Unknown, Provider, [address] [place], [place] [phone] Social History Tobacco Use Types Packs/Day Years Used Date Never Assessed Sex Assigned at Date Recorded Not on file documented as of this encounter Plan of Treatment Not on filedocumented as of this encounter Procedures Procedure Name Priority Date/Time Associated Diagnosis Comme nts CYTOPATHOLOGY Routine 05/14/2001 0:00 EDT Results for this procedure are i n the results section . documented in this encounter Results CYTOPATHOLOGY (05/14/2001 0:00 EDT) Pathology Report: CYTOPATHOLOGY REPORT [facility] Reports generated via electronic interface contain sheila ginal data; however they are lacking the format of the original re port. Caution should be taken when reading/interpreting unfo rmatted reports. Name: ? AURELIA MARCELO ? Accession #: ? [id number] : ? 1980 (Age: 20) ??F ?Collect Date: ? 05/03 Location: ? [facility] ? Receive Date : ? 05/15/2001 Provider: ?JANICE OLIVARES CNM Copy to: ? Specimen/Source: ?ThinPrep Pap Test, Cervix/ Endocervix Last Menstrual Period: ? 03/03/01 Menstrual/ Status: ? SPECIMEN ADEQUACY ? Satisfactory for evaluation. GENERAL CATEGORIZATION ? Within Normal Limits ? Document reviewed and electronically signed by: ? BOOGIE Barry(ASCP) ? Report Date: ??05/18/2001 09:08 End of Report Specimen Performing Organization Address City/State/ZIP Code Phon e Number [facility] [address] [place] [phone] SERVICES [facility] [address] [place] [address] documented in this encounter Visit Diagnoses Not on filedocumented in this encounter Care Teams Railroad Inspector Relationship Specialty Start Date End Date Antonia Lo FNP PCP - General 08/21/10 08/21/10 [address] [place] [phone] None, Provider PCP - General 08/22/10 documented as of this encounter
--- OUTSIDE RECORDS SUMMARY | 2022-06-06 10:45 | XMS_ITS | Encounter Summary ---
:1980 Author Organization [facility] Address [address] [place] [address] Care Team Providers Name Role Phone Unavailable Primary Care Provider Unavailable Encounter Details Date Type Department Care Team Description 05/30/2004 Results Only [facility] - Hellen Olivares CNM Maple conversion [address] [facility] [place] [address] [place], [place] [address] [phone] Social History Tobacco Use Types Packs/Day Years Used Date Never Assessed Sex Assigned at Date Recorded Not on file documented as of this encounter Plan of Treatment Not on filedocumented as of this encounter Procedures Procedure Name Priority Date/Time Associated Diagnosis Comme nts CYTOPATHOLOGY Routine 05/30/2004 0:00 EDT Results for this procedure are i n the results section . documented in this encounter Results CYTOPATHOLOGY (05/30/2004 0:00 EDT) Pathology Report: CYTOPATHOLOGY REPORT [facility] Reports generated via electronic interface contain sheila ginal data; however they are lacking the format of the original re port. Caution should be taken when reading/interpreting unfo rmatted reports. Name: ? AURELIA MARCELO ? Accession #: ? [id number] : ? 1980 (Age: 23) ??F ?Collect Date: ? 05/04 Location: ? [facility] ? Receive Date : ? 05/31/2004 Provider: ?JANICE OLIVARES CNM Copy to: ? Specimen/Source: ?ThinPrep Pap Test, Cervix/ Endocervix Last Menstrual Period: ? 04/29/04 Hormonal/Contraceptive Status: ? Yes: [place] Other: ? HPVA - HPV testing requested if ASC-US on the current ThinPrep Pap test. ? SPECIMEN ADEQUACY ? Satisfactory for Evaluation - transformation zone component present GENERAL CATEGORIZATION ? Negative for Intraepithelial Lesion or Malignan cy ? Document reviewed and electronically signed by: ? ERLINDA Taveras(ASCP) ? Report Date: ??06/06/2004 13:59 End of Report Specimen Performing Organization Address City/State/ZIP Code Phon e Number [facility] [address] [place] [address] SERVICES [facility] [address] [place] [address] documented in this encounter Visit Diagnoses Not on filedocumented in this encounter
--- OUTSIDE RECORDS SUMMARY | 2022-06-06 10:45 | XMS_ITS | Encounter Summary ---
:1980 Author Organization [facility] Address [address] [place] [address] Care Team Providers Name Role Phone None, Provider Primary Care Provider Unavailable Encounter Details Date Type Department Care Team Description 12/07/2015 Hospital Encounter [facility] - Alyssia Galvan [address], [address] [place] [address] [place], [place] [address] [phone] Social History Tobacco Use Types Packs/Day Years Used Date Never Assessed Sex Assigned at Date Recorded Not on file documented as of this encounter Discharge Diagnoses Diagnosis Z36 Encounter for screening of mother-Z36[ICD-10-CM] documented in this encounter Discharge Disposition Disposition Code Departure Means Destination Home or Self Care documented in this encounter Plan of Treatment Not on filedocumented as of this encounter Visit Diagnoses Not on filedocumented in this encounter Care Teams Bridal Stylist Sales Consultant Relationship Specialty Start Date End Date None, Provider PCP - General 08/22/10 documented as of this encounter
--- OUTSIDE RECORDS SUMMARY | 2022-06-06 10:45 | XMS_ITS | Encounter Summary ---
:1980 Author Organization [facility] Address [facility] [place] [address] Care Team Providers Name Role Phone DelfinKate VANDANA Primary Care Provider Encounter Details Date Type Department Care Team Description 12/31/2010 - Hospital Encounter [facility]enee , 01/02/2011 Radha Sierra MD [facility] [address] [facility] [place], [place] GYNECOLOGY [address] [place] [id number] [phone] Social History Tobacco Use Types Packs/Day Years Used Date Never Assessed Sex Assigned at Date Recorded Not on file documented as of this encounter Medications at Time of Discharge Medication Sig Dispensed Refills Start Date End Date VIT/FE 0 01/02/2011 FUMARATE/FA ( VIT-IRON FUMARATE-FA ORAL) ibuprofen (ADVIL;MOTRIN) 600 MG = 1 0 01/02/2011 12/29/2015 600 mg tablet Tablet(s), PO, Q6H,PRN OXYcodone-acetaminophen 1-2 Tablet(s), PO, 0 /12/201012/29/2015 (PERCOCET) 5-325 mg per Q4H,PRN tablet docusate sodium (COLACE) 100 MG = 1 0 01/02/2011 12/29/2015 100 mg capsule Capsule(s), PO, Twice daily documented as of this encounter Plan of Treatment Not on filedocumented as of this encounter Procedures Procedure Name Priority Date/Time Associated Comments Diagnosis CELL SCREEN Routine 12/31/2010 11:05 Result s for this AM EST procedure are i n the results section. DIFFERENTIAL, AUTOMATED Routine 12/31/2010 6:00 R esults for this AM EST procedure are i n the results section. CREATININE Routine 12/31/2010 6:00 Results for this AM EST procedure are i n the results section. ABO/RH TYPING Routine 12/31/2010 6:00 Results for this AM EST procedure are i n the results section. CBC (WITH DIFF) Routine 12/31/2010 6:00 Results f or this AM EST procedure are i n the results section. ANTIBODY SCREEN Routine 12/31/2010 6:00 Results f or this AM EST procedure are i n the results section. ASPARTATE Routine 12/31/2010 6:00 Results for this AMINOTRANSFERASE AM EST procedure a re in the results section. SURGICAL PATHOLOGY Routine 12/30/2010 10:53 Resul ts for this REPORT AM EST procedure are i n the results section. documented in this encounter Results CELL SCREEN (12/31/2010 11:05 AM EST) Analysis Performed At Patho logist Time Signature Hgb Negative [facility] Screen [facility] Specimen Anatomical Collection Method Collection Time Receive d Time (Source) Location / / Volume Laterality Blood specimen 12/31/2010 11:05 1 (specimen) AM EST 11:05 AM EST Kvng Escobar MD BLOOD BANK ORDERABLES Performing Organization Address City/State/ZIP Code Phon e Number [place] [phone] [address] [facility] (ABNORMAL) REFLEX LAB-A-DIFF (12/31/2010 6:00 AM EST) Patholo gist Method Time Signature Neutrophils % 82.8 (H) 34.0 - [facility] 71.0 % [facility] Neutr Abs (ANC) 11.99 (H) 1.50 - [facility] 6.30 [facility] x10(3)/mc L Lymphocytes % 11.0 (L) 19.0 - [facility] 53.0 % [facility] Lymphocytes Abs 1.6 1.0 - 3.6 [facility] x10(3)/mc [facility] L Monocytes % 5.7 4.0 - [facility] 13.0 % [facility] Monocyte Abs 0.8 0.2 - 1.0 [facility] x10(3)/mc [facility] L Eosinophils % 0.2 0.0 - 7.0 [facility] % [facility] Eosinophils Abs 0.0 0.0 - 0.5 [facility] x10(3)/mc [facility] L Basophils % 0.1 0.0 - 2.0 [facility] % [facility] Basophils Abs 0.0 0.0 - 0.2 [facility] x10(3)/mc [facility] L Immature Gran % 0.20 0.00 - [facility] 0.66 % [facility] Comment: Immature granulocytes(IG's)percentage an d absolute count will include metamyelocytes, myelocytes, and promyelo cytes. Blood smears from CBCs yielding IG's will be scanned manually for concor dance. If this scan disagrees with the automated IG or if promyelocytes are not ed, a manual differential will be performed. Natalia Gran Abs 0.03 0.00 - 0.05 x10(3)/mcL [facility] Specimen Anatomical Collection Method Collection Time Receive d Time (Source) Location / / Volume Laterality Blood specimen 12/31/2010 6:00 AM 011 6:18 (specimen) EST AM EST Kvng Escobar MD HEMATOLOGY ORDERABLES Performing Organization Address City/State/ZIP Code Phon e Number [address] [facility] REFLEX LAB-ANTIBODY SCREEN (12/31/2010 6:00 AM EST) Analysis Performed At Patho logist Time Signature Ab Screen Negative [facility] [id number] [facility] 2358 on: [facility] Specimen Anatomical Collection Method Collection Time Receive d Time (Source) Location / / Volume Laterality Blood specimen 12/31/2010 6:00 AM 011 6:21 (specimen) EST AM EST Kvng Escobar MD BLOOD BANK ORDERABLES Performing Organization Address City/State/ZIP Code Phon e Number [address] [facility] REFLEX LAB-ABO/RH (12/31/2010 6:00 AM EST) P athologist Signature ABORh Type A Neg [facility] Specimen Anatomical Collection Method Collection Time Receive d Time (Source) Location / / Volume Laterality Blood specimen 12/31/2010 6:00 AM 011 6:21 (specimen) EST AM EST Kvng Escobar MD BLOOD BANK ORDERABLES Performing Organization Address [facility] [place] [address] [facility] ASPARTATE AMINOTRANSFERASE (12/31/2010 6:00 AM EST) P athologist Signature AST 28 0 - 30 [facility] unit/L [facility] Specimen Anatomical Collection Method Collection Time Receive d Time (Source) Location / / Volume Laterality Blood specimen 12/31/2010 6:00 AM 011 6:18 (specimen) EST AM EST Kvng Escobar MD CHEMISTRY ORDERABLES Performing Organization Address City/[facility] [place] [address] [facility] (ABNORMAL) CBC (12/31/2010 6:00 AM EST) P athologist Signature WBC 14.5 (H) 4.0 - 10.0 [facility] x10(3)/mcL [facility] RBC 3.60 (L) 3.93 - [facility] 5.22 [facility] x10(6)/mcL Hemoglobin 11.8 11.2 - C[facility]ER 15.7 gm/dL [facility] Hematocrit 35.1 34.0 - [facility] 45.0 % [facility] MCV 97.5 (H) 79.0 - C[facility] 94.0 fL [facility] MCH 32.8 (H) 26.6 - C[facility]ER 32.2 pg [facility] MCHC 33.6 32.0 - C[facility]ER 36.5 gm/dL [facility] Platelets 190 145 - 370 [facility] x10(3)/mcL [facility] RDWSD 48.1 (H) 35.0 - CERNER 46.0 fL [facility] RDWCV 13.4 10.9 - CERNER 14.4 % [facility] MPV 10.0 9.0 - 12.0 [facility] fL [facility] Specimen Anatomical Collection Method Collection Time Receive d Time (Source) Location / / Volume Laterality Blood specimen 12/31/2010 6:00 AM 011 6:18 (specimen) EST AM EST Kvng Escobar MD HEMATOLOGY ORDERABLES Performing Organization Address City/State/ZIP Code Phon e Number [address] [facility] (ABNORMAL) CREATININE, SERUM (12/31/2010 6:00 AM EST) Analysis Performed At Patho logist Time Signature Creatinine 0.54 (L) 0.70 - [facility]ERN[facility] 1.20 mg/dL [facility] Estimated GFR >60 >=60 [facility] Comment: The National Kidney Disease Education Pr ogram (NKDEP) has recommended all laboratories report estimated GFR (eGFR) along with plasma creatinine measurements to assist you with recognit ion of early kidney disease. Caveats: ??Plasma creatinine should be a t steady-state (unchanged within the past week). ??Patient age > = 18 years, and for Americans multiply eGFR by 1.2. At present, NKDEP does NOT recommend usi ng the MDRD equation for drug dosing purposes and pharmacists should continue to use their current dosing methods. In addition, numerical eGFR values great er than 60 ml/min/1.73 square meters should be treated as > 60, and not an ex act number due to greater inaccuracies at these higher values. Per NKDEP, they classify normal renal function as any GFR >60ml/min/1.73 square meters; chronic kidney disease wh en GFR <60, and renal failure when GFR <15. ??This calculation may not be valid for patients with atypical muscle mass (very lean or obese), acute renal failur e, and in patients with diabetic kidney disease. References: http://nkdep.nih.gov/resources/NKDEP_Sug gestn4Labs_0606_508.pdf http://www.kidney.org/professionals/kls/ pdf/faq_gfr.pdf Specimen Anatomical Collection Method Collection Time Receive d Time (Source) Location / / Volume Laterality Blood specimen 12/31/2010 6:00 AM 011 6:18 (specimen) EST AM EST Kvng Escobar MD CHEMISTRY ORDERABLES Performing Organization Address City/State/ZIP Code Phon e Number [address] [facility] PATHOLOGY SURGICAL PATHOLOGY FINAL REPORT (12/30/2010 10:53 AM EST) Component Value Ref Test Analysis Performed At [facility] gist Range Method Time Signature Surgical [facility] Pathology ? [facility] Report ? Provider: ?? KVNG ESCOBAR ?? Pt. Name: ?? DANIELA Norman, CRYSTAL ? Acc #: ?[id number] ?Pt. MRN: ?[id number] ? Col Date: ?? 1 ? /Sex: ?1980,(30 years),Female ? Rec Date: ?? 12/31/2010 ? LOC: ?[facility] ? SURGICAL PATHOLOGY ? ---Pathologic Diagnosis--- ? Third trimester placenta, cord and membranes: ? Negative for chorioamnionitis or funisitis. ? 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 ? Hypercoiled cord. ? CR-0 ? 01/02/11 ? KO ? 01/03/11 Verified by: ? Padmini Santos MD ? Pathologist ? (Electronic Si gnature) ? The attending pathologist whose signature appears o n this report has ? reviewed all diagnostic slides and has edited the sylvester ss and/or ? microscopic portion of the report in rendering the fi nal pathologic ? diagnosis. ? ---Comment--- ? The grossly fibrotic segment which amounts to over half of the placental ? mass shows avascular villi, which would account for the IUGR. This, being ? part of the thrombotic vasculopathy seque nce, correlates to the ? thrombosed surf justine vessels in sections 6-10. The hypercoiled cord may ? be the cause of these thromboses. ? The thrombocytopenia observed in the may have its cause in the ? thromboses. ? and thromboses have been described in the RESPIRATORY SCIENTIST, pulmonary ? circulation and renal vessels. Additional ly, stroke, cerebral ? degenerative changes, abnormalities in brain imaging, cerebral palsy and ? poor usp neurological out come have been descri bed. ? The above information was telephonically communicaqted to the NICU on 01/02- ? 2010 ? ---Microscopic Description--- ? Slides reviewed, microscopic description not recorded . ? ---Gross Description--- ? Labeled/Fixative: ? Labeled with the patient's na me, fresh. ? Qty/Size/Weight: ?Single, 17.0 x 17.0 x 3.5 cm , 441 g. ? Tissue Description: ?? Discoid loya placenta. ?Membranes: ? [place]-red, semitransparent, 50% circum-marginate ? insertion, 50% circumvallate insertion. ? [facility] ? Provider: ?? KVNG ESCOBAR ?? Pt. Name: ?? DANIELA Norman, CRYSTAL ? Acc #: ?[id number] ?Pt. MRN: ?[id number] ? Col Date: ?? 1 ? /Sex: ?1980,(30 years),Female ? Rec Date: ?? 12/31/2010 ? LOC: ?BP ? SURGICAL PATHOLOGY ?Cord: ?35.0 x 0.7 cm; three vessels; paracentral insertion. ? The cord is thin and hypercoiled. ? Surface: ? Purple and clear. The surface vessels are hard ? and striated. ?Maternal Surface: ??Intact. ?Parenchyma: ?The specimen is serially sectioned at 0.5-cm to ? 1.0-cm intervals. ??Sections show a spongy, red ? parenchyma with a 15. 0 x 11.0-cm, jay-yellow, fibrotic area involving 60% ? of the parenchymal volume. ? Sections/Processing: ??Sections are submitted as follows: ??(1) membrane ? roll; (2) proximal and distal cord; (3) surface ; (4) maternal ? surface; (5) lesion; (6-10) surface vessels. ??(R10) ??aje/SNS ? ---Clinical Information--- ? Specimen Submitted: ? A - Placenta ? Clinical History: ? IUGR mother with hypertension ? Clinical Diagnosis: ? Same Specimen (Source) Anatomical Collection Method Collection Time Re ceived Time Location / / Volume Laterality 12/30/2010 10:53 AM EST Kvng Escobar MD PATHOLOGY/CYTOLOGY ORDERABLE S Performing Organization Address City/State/[place] [address] [facility] documented in this encounter Visit Diagnoses Not on filedocumented in this encounter Active and Recently Administered Medications Care Teams Cardiac Cath Lab Manager Relationship Specialty Start Date End Date Kate Lenz CNM PCP - General 12/30/[address] [facility] [address] [place] [address] documented as of this encounter
--- OUTSIDE RECORDS SUMMARY | 2022-06-06 10:45 | XMS_ITS | Encounter Summary ---
:1980 Author Organization [facility] Address [address] [place] [address] Care Team Providers Name Role Phone Unavailable Primary Care Provider Unavailable Encounter Details Date Type Department Care Team Description 06/19/2007 Results Only [facility] - Aung Lara, JOCELYNE Maple conversion [address] [facility] [place], [place] [address] [place] [address] [phone] Social History Tobacco Use Types Packs/Day Years Used Date Never Assessed Sex Assigned at Date Recorded Not on file documented as of this encounter Plan of Treatment Not on filedocumented as of this encounter Procedures Procedure Name Priority Date/Time Associated Diagnosis Comme nts CYTOPATHOLOGY Routine 06/19/2007 0:00 EDT Results for this procedure are i n the results section . documented in this encounter Results CYTOPATHOLOGY (06/19/2007 0:00 EDT) Pathology Report: CYTOPATHOLOGY REPORT [facility] Reports generated via electronic interface contain sheila ginal data; however they are lacking the format of the original re port. Caution should be taken when reading/interpreting unfo rmatted reports. Name: ? AURELIA MARCELO ? Accession #: ? [id number] : ? 1980 (Age: 26) ??F ?Collect Date: ? 06/03 Location: ? [facility] ? Receive Date : ? 06/22/2007 Provider: ?ROMAN LARA CNM Copy to: ? Specimen/Source: ? ThinPrep Pap Test, Cervix/Endocervix, processed on [employer] ThinPrep Imaging System, with manual evaluation Last Menstrual Period: ? 05/22/07 Other: ? HPVA - HPV testing requested if ASC-US on the current ThinPrep Pap test. ? SPECIMEN ADEQUACY ? Satisfactory for Evaluation - transformation zone component present GENERAL CATEGORIZATION ? Negative for Intraepithelial Lesion or Malignan cy ? Document reviewed and electronically signed by: ? BOOGIE Barry(ASCP) ? Report Date: ??06/25/2007 09:08 End of Report Specimen Performing Organization Address City/State/ZIP Code Phon e Number [facility] [address] [place] [phone] SERVICES [facility] [address] [place] [address] documented in this encounter Visit Diagnoses Not on filedocumented in this encounter
--- OUTSIDE RECORDS SUMMARY | 2022-06-06 10:45 | XMS_ITS | Encounter Summary ---
:1980 Author Organization [facility] Address [facility] [place] [address] Care Team Providers Name Role Phone Kate Lenz CNM Primary Care Provider Reason for Visit Reason Comments Advanced Maternal Age [age] years old at [facility]EN[facility] Consultation (Routine) - Closed Specialty Diagnoses / Procedures Referred By Contact Refer red To Contact Maternal and Diagnoses IUGR in previous , HTN Kate Lenz CNM [facility] Dice Dealer 5l Medicine / Obstetrics Procedures IUGR in previous , HTN [facility] 8 [facility] and Gynecology [address] [place] [phone] Phone: Fax: Referral ID Status Reason Start Date Expiration Date Visits Requ ested Visits Authorized [id number] Closed 11/30/2015 11/29/2016 2 2 Encounter Details Date Type Department Care Team Description 12/29/2015 Office Visit Obstetrics and Hernán Webb, Materna l age 35+, multigravida, second trimester; Gynecology at [facility] Encounter for genetic counseling Formerly [facility], [facility] [address] [place] OBSTETRICS & [phone] GYNECOLOGY [phone] [place], [place] [address] Social History Tobacco Use Types Packs/Day Years Used Date Never Smoker Sex Assigned at Date Recorded Not on file documented as of this encounter Progress Notes Hernán Webb, [facility] - 12/29/2015 4:01 PM EST Genetic Counseling Note Aurelia Marcelo is a 35 y.o. female currently at 18w4d gestation. She was referred to the Diagnosis Program by Kate Lenz CNM. I met with Aurelia for a 40 minute genetic counseling visit. She was accompanied to the visit by her , Narendra Marcelo. Chief Complaint Patient presents with ??? Advanced Maternal Age [age] years old at FREN[facility] Past Medical History Diagnosis Date ??? Gestational hypertension 2011 onset 37 weeks Family History Problem (# of Occurrences) Relation (Name,Age of Onset) Hypertension (2) Father, Sister Type 2 Diabetes (1) Paternal Grandmother The reported family history was otherwise unremarkable for intellectual disability, congenital anomalies, recurrent loss, or known genetic conditions. A pedigree was obtained and will be scanned into Aurelia's electronic medical record. Aurelia is of [place] and other ancestry. Narendra is of [place] ancestry. Consanguinity is denied. Obstetric History T3 TAB0 SAB0 E0 M0 L3 # Outcome Date GA Lbr Neil/2nd Weight Sex Delivery Anes PTL Lv 4 Current 3 Term 12/30/10 38w3d 2.098 kg (4 lb 10 oz) F LWR SEG BORDEN N Y 2 Term 04/24/05 40w0d 4.252 kg (9 lb 6 oz) F Vag-Spont N Y 1 Term 12/06/01 40w0d 4.167 kg (9 lb 3 oz) M Vag-Spont N Y Patient's last menstrual period was 08/21/2015. Estimated Date of Delivery: 05/27/2016 based on menstrual dating. Screening Results Test Result ??? Integrated screen Screen negative ??? Open neural tube defect risk 1:6,000 ??? Down syndrome risk 1:2,200 ??? Trisomy 18 risk 1:10,000 ??? Cystic fibrosis carrier screen Discussed and declined 12/29/2015 ??? Vito-Sachs carrier screen Discussed and declined 12/29/2015 ??? Thalassemia screen MCV within normal limits (93 fL) Assessment Advancing maternal age is associated with an increased rate of aneuploidy due to chromosome missegregation. We discussed the difference between screening and diagnostic testing for aneuploidy.We reviewed the report of Aurelia's integrated screen, which showed a low risk for Down syndrome and trisomy 18 as noted above. We discussed the benefits, risks, and limitations of a detailed morphology ultrasound and amniocentesis for chromosome analysis. Aurelia was satisfied with the results of her integrated screen and declines amniocentesis at this time. Plan Aurelia is scheduled for a targeted morphology ultrasound and maternal- medicine consultation following our visit today. documented in this encounter Plan of Treatment Not on filedocumented as of this encounter Visit Diagnoses Diagnosis Maternal age 35+, multigravida, second t rimester Encounter for genetic counseling Genetic counseling documented in this encounter Care Teams Vinyl Dipper Relationship Specialty Start Date End Date Kate Lenz CNM PCP - General 12/30/10 [facility] [address] [place] [address] documented as of this encounter
--- OUTSIDE RECORDS SUMMARY | 2022-06-06 10:45 | XMS_ITS | Encounter Summary ---
:1980 Author Organization [facility] Address [address] [place] [address] Care Team Providers Name Role Phone None, Provider Primary Care Provider Unavailable Encounter Details Date Type Department Care Team Description 11/16/[address] [facility] Donato Kanwal Chamberlain MD 1 [facility] [address] [place], [place] [id number] [place] [address] [place], [address] [place] [phone] (Wo rk) Social History Tobacco Use Types [...] on filedocumented in this encounter Care Teams [employer] Lieutenant Relationship Specialty Start Date End Date None, Provider PCP - General 08/22/10 documented as of this encounter
--- OUTSIDE RECORDS SUMMARY | 2022-06-06 10:45 | XMS_ITS | Encounter Summary ---
:1980 Author Organization [facility] Address [facility] [place] [address] Care Team Providers Name Role Phone Kate Lenz CNM Primary Care Provider Encounter Details Date Type Department Care Team Description 04/03/2016 Hospital Encounter Ultrasound at [facility] Wendi Pickett IUGR (intrauterine [facility] K, CNM growth restriction) Drive [address] affecting care of [place], [place] [address] [facility] [address] mother, third [phone] [place], [place] trimester, not [phone] applicable or [phone] unspecified fet us (Work) Social History Tobacco Use Types Packs/Day Years [...] Comme nts US OB FOLLOW UP Routine 04/03/2016 10:31 AM IUGR (intrauterine Results for this EDT growth restriction) procedur e are in affecting care of the result s mother, third section. trimester, not applicable or unspecified fetus documented in this encounter Results US OB Follow Up Evaluation (04/03/2016 10:31 AM EDT) Anatomical Region Laterality Modality Pelvis, Abdomen Ultrasound Specimen (Source) Anatomical Collection Method Collection Time Re ceived Time Location / / Volume Laterality 04/03/2016 10:29 AM EDT Impressions 04/03/2016 10:36 AM EDT Impression 3rd Trimester Summary Single intrauterine with a ge stational age of 32w 2d based on LMP ??(08/21/15) Composite age based on the current ultr asound alone is 35w 0d. Estimated weight corresponds to t he > 95th percentile for 32w 2d. Amniotic fluid volume is Normal, YSABEL = 19.87 cm, MVP = 6.31 cm Current growth parametrs are consistent with prior dating indicating LGA fetus. Anatomical survey is limited due to the late gestational age. I ??viewed the images and agree with norma valverde interpretation. ? Monroe Loya MD Electronically Signed Final Report ?? 10:36 am Narrative 04/03/2016 10:36 AM EDT OBSTETRICS REPORT ?(Signed Final 04/03/2016 10:36 am) Patient Info ID #: ? [id number] ?: ??[birth year] (35 yrs) Name: ? AURELIA MARCELO ?Visit Date: 04/03/2016 10:29 am Performed By Performed By: ? Regina Ross RDMS Attending: ?Vincenzo ANDINO, Wayne Lackey. Referred By: ?WENDI PICKETT MD Service(s) Provided ??UOBFOL - Efw - Growth - [place] - I [id number] ? [id number] Indications ??HISTORY OF IUGR;32 WEEK SCAN; E - ??Coordinates with gestational age or m ore ??than one week OB History Blood Type: ?? A- ? Height: ??5' 11 ?? Weight: ??198 ? BMI: ??27.61 Evaluation Num Of Fetuses: ? 1 Heart ? 135 Rate(bpm): Cardiac Activity: ?? Observed, normal r hythm Presentation: ? Cephalic Placenta: ? Anterior Amniotic Fluid YSABEL FV: ?Normal YSABEL Sum: ? 19.87 ?? cm ?Larg Pckt: ?? 6.31 ??cm RUQ: ?? 4.34 ?cm ?LUQ: ?? 6.31 ?cm RLQ: ?? 5.44 ?cm ?LLQ: ?? 3.78 ?cm -------- Biometry -------- BPD: ?85.6 ??mm ? G.Age: ?? 34w 4d ?93 ?? % OFD: ? 113.5 ??mm HC: ?318.9 ??mm ? G.Age: ?? 35w 6d ?94 ?? % AC: ?322.0 ??mm ? G.Age: ?? 36w 1d ?> 97 ?? % FL: ? 65.0 ??mm ? G.Age: ?? 33w 4d ?71 ?? % HUM: ?59.4 ??mm ? G.Age: ?? 34w 3d ?> 95 ?? % CI: ?75.4 ??% ? 70 - 86 FL/HC: ? 20.4 ??% ? 19.1 - 21.3 HC/AC: ? 0.99 ?0.96 - 1.17 FL/BPD: ?75.9 ??% ? 71 - 87 FL/AC: ? 20.2 ??% ? 20 - Est. FW: ?2632 ?? gm ?5 lb 13 o z ?> 95 ?? % Gestational Age LMP: ? 32w 2d ?Date : ??08/21/15 ? FRENCH: ?05/27/16 U/S Today: ? 35w 0d ?FRENCH: ?05/08/16 Best: ?32w 2d ?? Det. By: ??LMP ??(08/21/15) ?FRENCH: ?05/27/16 ------- Anatomy ------- Cranium: ?Visualized Cavum: ?Visualized Ventricles: ? Limited views Cerebellum: ? Not well seen d ue to position Posterior Fossa: ?Not well seen due to position Nuchal Fold: ?Not evaluated a t this gestational age Face: ? Limited view s Heart: ?4-chamber vi ew appears normal RVOT: ? Not seen due to position LVOT: ? Not seen due to position Diaphragm: ?Visualized Stomach: ?Visualized Abdomen: ?Within Normal Limits Kidneys: ?Visualized Bladder: ?Visualized Upper ? Limited view s Extremities: Lower ? Limited view s Extremities: Other: ??Nasal Bone: Present Cervix Uterus Adnexa Left Ovary Not visualized Right Ovary Not visualized Procedure Note Monroe Loya MD - 04/03/2016Format ting of this note might be different from the original. OBSTETRICS REPORT (Signed Final 016 10:36 am) Patient Info ID #: [id number] : [birth year] (35 y rs) Name: AURELIA MARCELO Visit Date: 04/03 10:29 am Performed By Performed By: Darlene Ross RDMS Attending: Monroe Loya MD Referred By: WENDI PICKETT MD Service(s) Provided UOBFOL - Efw - Growth - [place] - [facility] [id number] Indications HISTORY OF IUGR;32 WEEK SCAN; E - Coordinates with gestational age or mor e than one week OB History Blood Type: A- Height: 5'11 Weight: 19 8 BMI: 27.61 Evaluation Num Of Fetuses: 1 Heart 135 Rate(bpm): Cardiac Activity: Observed, normal rhyt hm Presentation: Cephalic Placenta: Anterior Amniotic Fluid YSABEL FV: Normal YSABEL Sum: 19.87 cm Larg Pckt: 6.31 cm RUQ: 4.34 cm LUQ: 6.31 cm RLQ: 5.44 cm LLQ: 3.78 cm -------- Biometry -------- BPD: 85.6 mm G.Age: 34w 4d 93 % OFD: 113.5 mm HC: 318.9 mm G.Age: 35w 6d 94 % AC: 322.0 mm G.Age: 36w 1d > 97 % FL: 65.0 mm G.Age: 33w 4d 71 % HUM: 59.4 mm G.Age: 34w 3d > 95 % CI: 75.4 % 70 - 86 FL/HC: 20.4 % 19.1 - 21.3 HC/AC: 0.99 0.96 - 1.17 FL/BPD: 75.9 % 71 - 87 FL/AC: 20.2 % 20 - 24 Est. FW: 2632 gm 5 lb 13 oz > 95 % Gestational Age LMP: 32w 2d Date: 08/21/15 FRENCH: 6 U/S Today: 35w 0d FRENCH: 05/08/16 Best: 32w 2d Det. By: LMP (08/21/15) ED ------- Anatomy ------- Cranium: Visualized Cavum: Visualized Ventricles: Limited views Cerebellum: Not well seen due to positi on Posterior Fossa: Not well seen due to p osition Nuchal Fold: Not evaluated at this gest ational age Face: Limited views Heart: 4-chamber view appears normal RVOT: Not seen due to position LVOT: Not seen due to position Diaphragm: Visualized Stomach: Visualized Abdomen: Within Normal Limits Kidneys: Visualized Bladder: Visualized Upper Limited views Extremities: Lower Limited views Extremities: Other: Nasal Bone: Present Cervix Uterus Adnexa Left Ovary Not visualized Right Ovary Not visualized IMPRESSION Impression 3rd Trimester Summary Single intrauterine with a ge stational age of 32w 2d based on LMP (08/21/15) Composite age based on the current ultr asound alone is 35w 0d. Estimated weight corresponds to t he > 95th percentile for 32w 2d. Amniotic fluid volume is Normal, YSABEL = 19.87 cm, MVP = 6.31 cm Current growth parametrs are consistent with prior dating indicating LGA fetus. Anatomical survey is limited due to the late gestational age. I viewed the images and agree with the above interpretation. Monroe Loya MD Electronically Signed Final Report 04/03 10:36 am Wendi Pickett CNM [facility] OB ORDERABLES documented in this encounter Visit Diagnoses Diagnosis IUGR (intrauterine growth restriction) a ffecting care of mother, third trimester, not applicable or unspecified fetus documented in this encounter Care Teams Wire Saw Operator Relationship Specialty Start Date End Date Kate Lenz CNM PCP - General 12/30/10 [facility] [address] [place] [address] documented as of this encounter
--- OUTSIDE RECORDS SUMMARY | 2022-06-06 10:45 | XMS_ITS | Encounter Summary ---
:1980 Author Organization [facility] Address [address] [place] [address] Care Team Providers Name Role Phone Unavailable Primary Care Provider Unavailable Encounter Details Date Type Department Care Team Description 11/12/2004 Results Only [facility] - Lashae martinez, Provider, conversion [address] [facility] [place] [address] Social History Tobacco Use Types Packs/Day Years Used Date Never Assessed Sex Assigned at Date Recorded Not on file documented as of this encounter Plan of Treatment Not on filedocumented as of this encounter Procedures Procedure Name Priority Date/Time Associated Diagnosis Comme nts RUBELLA IGG AB Routine 11/12/2004 11:31 Results f or this EST procedure are i n the results section. HEPATITIS B SURFACE Routine 11/12/2004 11:31 Resu lts for this ANTIGEN EST procedure are i n the results section. SYPHILIS SERO (RPR) Routine 11/12/2004 11:31 Resu lts for this EST procedure are i n the results section. documented in this encounter Results RUBELLA IGG AB (11/12/2004 11:31 EST) Pathologist Sig nature Rubella IgG Scr Antibody detected [facility] Specimen Performing Organization Address City/[facility]/ZIP Code Phon e Number [facility] [address] [place] [address] SERVICES [facility] [address] [place] [address] SYPHILIS SERO (RPR) (11/12/2004 11:31 EST) Pathologist Sig nature Syphilis Sero (RPR) NONREACT. NR Dils [facility] Specimen Performing Organization Address [facility] Phon e Number [facility] [address] [place] [address] SERVICES [facility] [address] [place] [address] HEPATITIS B SURFACE ANTIGEN (11/12/2004 11:31 EST) Pathologist Sig nature Hepatitis B Surface Ag Neg [facility] Specimen Performing Organization Address City/State/ZIP Code Phon e Number [facility] [address] [place] [address] [facility] [address] [place] [address] documented in this encounter Visit Diagnoses Not on filedocumented in this encounter
--- OUTSIDE RECORDS SUMMARY | 2022-06-06 10:45 | XMS_ITS | Encounter Summary ---
:1980 Author Organization [facility] Address [address] [place] [address] Care Team Providers Name Role Phone Unavailable Primary Care Provider Unavailable Encounter Details Date Type Department Care Team Description 08/01/2010 Results Only [facility]- Juani Duncan CN [phone] [address] [facility] [place], [place] [address] (Wo rk) Social History Tobacco Use Types Packs/Day Years Used Date Never Assessed Sex Assigned at Date Recorded Not on file documented as of this encounter Plan of Treatment Not on filedocumented as of this encounter Procedures Procedure Name Priority Date/Time Associated Diagnosis Comme nts [facility] ROUTINE 08/22/2010 14:59 EDT Results for this procedure are i n the results section . documented in this encounter Results [facility] ROUTINE (08/22/2010 14:59 EDT) Anatomical Region Laterality Modality Other Specimen Narrative [facility] RADIOLOGY - 08/22/2010 15:25 EDT Indication: Screening. History: Age: 29 years. : 4 Para: 2. Previous pregnancies: Children born at term: 2. Abortions: 1. Living children: 1. Current : Pre- data: Weight 184 lbs. Height 5 ft 7 ins. BMI 28.8. Dating: LMP: 03/25/2010 EDC: 12/30/2010 GA by LM P: 21w3d Earlier Assessment on: 05/22/2010 EDC: 0 01/10/2011 GA by earlier assessment: 19w6d Current Scan on: 08/22/2010 EDC: 011 GA by current scan: 20w4d Best Overall Assessment: 08/22/2010 EDC: 01/10/2011 Assessed GA: 19w6d The calculation of the gestational age b y current scan was based on BPD, HC, TCD, AC, FL and HUM. The Best Overall Assessment is based on an earlier assessment on 05/22/2010. General Evaluation: heart activity: Present. hea rt rate: 136 bpm. Presentation: cephalic, Spine left. movement: present. Amniotic Fluid: Normal. Cord: 3 Vessels. cord insertion si te: Normal. Placenta: Posterior. Placenta Grade: Gra de 0. Structure: normal. Anatomy Scan: [place] gestation. Biometry: BPD 48.4 mm 80th% 20w4d (20w0d to 21w2d) HC 175.2 mm 51st% 20w0d (18w4d to 21w4d) AC 156.4 mm 74th% 20w6d (20w1d to 21w3d) FL 33.4 mm 65th% 20w3d (18w5d to 22w2d) OFD 60.5 mm 60th% 20w0d TCD 21.9 mm 88th% 21w1d HUM 31.2 mm 69th% 20w3d VENTRp 5.3 mm n/a CM 5.1 mm 55th% NUCHAL FOLD 4.46 mm HC/AC Ratio 1.120 ??19th% FL/AC Ratio 0.214 ??41st% BPD/FL Ratio 1.449 ??17th% BPD/OFD Ratio 0.800 ??63rd% EFW (lbs/oz) 0 lbs 13 ozs EFW (g) 364 g ??83rd% Anatomy: Head: head shape appears normal. Brain: Cerebellum, choroid plexus, ciste rna magna, lateral cerebral ventricles, midline falx and cavum septi pellucidi appear normal. Face: Upper lip appears normal. Spine: Cervical, thoracic, lumbar and sa cral spine appear normal Neck / Skin: No neck masses seen. Thorax: No thoracic abnormalities detect ed. Heart: Four chamber heart and outflow tr acts appear normal. Abdominal Wall: Normal cord insertion in to the abdominal wall is seen. Gastrointestinal Tract: Stomach appears normal. Kidneys / Adrenal Glands: Bilateral kidn eys appear normal. Bladder: bladder appears normal in size and shape. Extremities: Both upper and lower extrem ities are seen. Skeleton: No evidence of skeletal abnorm ality detected. Maternal Structures: Uterus, cervix and both ovaries appear n ormal. Report Summary: Impression: [id number] Obstetrical ultrasound with and maternal evaluation This is a [place] gestation. Biometry is consistent with earlier ultr asound dating. Anatomy appears normal as noted above; however, ultrasound cannot detect all anomalies. There is fet al trunk and extremity movement noted. The amniotic fluid volum e appears normal. There appear to be isolated calcificatio ns within the stomach wall that likely represent normal variant. No further evaluation is recomended. Recommendations: Follow-up as clinically indicated. Procedure Note 08/22/2010 Indication: Screening. History: Age: 29 years. : 4 Para: 2. Previous pregnancies: Children born at term: 2. Abortions: 1. Living children: 1. Current : Pre- data: Weight 184 lbs. Height 5 ft 7 ins. BMI 28.8. Dating: LMP: 03/25/2010 EDC: 12/30/2010 GA by LM P: 21w3d Earlier Assessment on: 05/22/2010 EDC: 0 01/10/2011 GA by earlier assessment: 19w6d Current Scan on: 08/22/2010 EDC: 011 GA by current scan: 20w4d Best Overall Assessment: 08/22/2010 EDC: 01/10/2011 Assessed GA: 19w6d The calculation of the gestational age b y current scan was based on BPD, HC, TCD, AC, FL and HUM. The Best Overall Assessment is based on an earlier assessment on 05/22/2010. General Evaluation: heart activity: Present. hea rt rate: 136 bpm. Presentation: cephalic, Spine left. movement: present. Amniotic Fluid: Normal. Cord: 3 Vessels. cord insertion si te: Normal. Placenta: Posterior. Placenta Grade: Gra de 0. Structure: normal. Anatomy Scan: [place] gestation. Biometry: BPD 48.4 mm 80th% 20w4d (20w0d to 21w2d) HC 175.2 mm 51st% 20w0d (18w4d to 21w4d) AC 156.4 mm 74th% 20w6d (20w1d to 21w3d) FL 33.4 mm 65th% 20w3d (18w5d to 22w2d) OFD 60.5 mm 60th% 20w0d TCD 21.9 mm 88th% 21w1d HUM 31.2 mm 69th% 20w3d VENTRp 5.3 mm n/a CM 5.1 mm 55th% NUCHAL FOLD 4.46 mm HC/AC Ratio 1.120 19th% FL/AC Ratio 0.214 41st% BPD/FL Ratio 1.449 17th% BPD/OFD Ratio 0.800 63rd% EFW (lbs/oz) 0 lbs 13 ozs EFW (g) 364 g 83rd% Anatomy: Head: head shape appears normal. Brain: Cerebellum, choroid plexus, ciste rna magna, lateral cerebral ventricles, midline falx and cavum septi pellucidi appear normal. Face: Upper lip appears normal. Spine: Cervical, thoracic, lumbar and sa cral spine appear normal Neck / Skin: No neck masses seen. Thorax: No thoracic abnormalities detect ed. Heart: Four chamber heart and outflow tr acts appear normal. Abdominal Wall: Normal cord insertion in to the abdominal wall is seen. Gastrointestinal Tract: Stomach appears normal. Kidneys / Adrenal Glands: Bilateral kidn eys appear normal. Bladder: bladder appears normal in size and shape. Extremities: Both upper and lower extrem ities are seen. Skeleton: No evidence of skeletal abnorm ality detected. Maternal Structures: Uterus, cervix and both ovaries appear n ormal. Report Summary: Impression: [id number] Obstetrical ultrasound with and maternal evaluation This is a [place] gestation. Biometry is consistent with earlier ultr asound dating. Anatomy appears normal as noted above; however, ultrasound cannot detect all anomalies. There is fet al trunk and extremity movement noted. The amniotic fluid volum e appears normal. There appear to be isolated calcificatio ns within the stomach wall that likely represent normal variant. No further evaluation is recomended. Recommendations: Follow-up as clinically indicated. Performing Organization Address City/State/ZIP Code Phon e Number [facility] documented in this encounter Visit Diagnoses Not on filedocumented in this encounter
--- OUTSIDE RECORDS SUMMARY | 2022-06-06 10:45 | XMS_ITS | Clinical Summary ---
:1980 Author Organization [place] [address] Care Team Providers Name Role Phone Delfin Kate VANDANA Primary Care Provider Allergies No known active allergies Medications Medication Sig Dispensed Refills Start Date End Date Status VIT/FE 0 01/02/2011 Act avelina FUMARATE/FA ( VIT-IRON FUMARATE-FA ORAL) aspirin 81 mg Tablet, Take 81 mg by 0 Active Delayed Release (E.C.) mouth daily. Immunizations Name Administration Dates Next Due Influenza Vaccine, Whole 11/03/2009 Rho (D) Immune Globulin, IV or IM 12/31/2010 Family History Medical History Relation Comments Hypertension Father Type 2 Diabetes Paternal Grandmother Hypertension Sister Relation Status Comments Father Paternal Grandmother Sister Social History Tobacco Use Types Packs/Day Years Used Date Never Smoker Alcohol Use Standard Drinks/Week Comments No 0 (1 standard drink = 0.6 oz pure alcoho l) Sex Assigned at Date Recorded Not on file Last Filed Vital Signs Vital Sign Reading [...] Mass Index 29.59 12/29/2015 10:17 AM EST Plan of Treatment Health Maintenance Due Date Last Done Comments Covid-19 Vaccine (#1) 1983 HIV screen 1996 Hepatitis C Screening 1996 Tdap adult 1997 Tetanus vaccine 1997 HPV test 2008 PAP Smear 2008 Breast Cancer Share Decision Needed 2018 Influenza (Flu) vaccine ( - Influenza standard 07/04/2022 11/03/2009 series) Insurance Payer Benefit Plan / Subscriber ID Effective Dates Phone Addre ss Type Group [place] [id number] 2015-Eduar [phone] [address] [facility] [address] [place], [place] [id number] Care Teams Drafter Cartographic Relationship Specialty Start Date End Date Kate Lenz CNM PCP - General 12/30/10 [facility] [address] [place] [address]
--- OUTSIDE RECORDS SUMMARY | 2022-06-06 10:45 | XMS_ITS | Encounter Summary ---
:1980 Author Organization [facility] Address [address] [place] [address] Care Team Providers Name Role Phone Antonia Lo HAND EDGER Primary Care Provider None, Provider Primary Care Provider Unavailable Encounter Details Date Type Department Care Team Description 02/04/2003 Hospital Encounter [facility] - Alyssia Lara CNM [address] [facility],[address] [place] [id number] Other Unknown, Provider, [address], [place] [id number] Social History Tobacco Use Types Packs/Day Years Used Date Never Assessed Sex Assigned at Date Recorded Not on file documented as of this encounter Plan of Treatment Not on filedocumented as of this encounter Procedures Procedure Name Priority Date/Time Associated Diagnosis Comme nts CYTOPATHOLOGY Routine 02/04/2003 0:00 EST Results for this procedure are i n the results section . documented in this encounter Results CYTOPATHOLOGY (02/04/2003 0:00 EST) Pathology Report: CYTOPATHOLOGY REPORT [facility] Reports generated via electronic interface contain sheila ginal data; however they are lacking the format of the original re port. Caution should be taken when reading/interpreting unfo rmatted reports. Name: ? AURELIA MARCELO ? Accession #: ? [id number] : ? 1980 (Age: 22) ??F ?Collect Date: ? 04/0 02/2003 Location: ? [facility] ? Receive Date : ? 02/07/2003 Provider: ?ALYSSIA LARA CNM Copy to: ? Specimen/Source: ?ThinPrep Pap Test, Cervix Last Menstrual Period: ? 01/20/03 Hormonal/Contraceptive Status: ? Oral contraceptives ? SPECIMEN ADEQUACY ? Satisfactory for Evaluation - transformation zone component present GENERAL CATEGORIZATION ? Negative for Intraepithelial Lesion or Malignan cy ? Document reviewed and electronically signed by: ? BOOGIE Nava(ASCP) ? Report Date: ??02/09/2003 14:31 End of Report Specimen Performing Organization Address City/State/ZIP Code Phon e Number [facility] [address] [place] [address] SERVICES [facility] [address] [place] [address] documented in this encounter Visit Diagnoses Not on filedocumented in this encounter Care Teams Foot Tender Relationship Specialty Start Date End Date Antonia Lo FNP PCP - General 08/21/10 08/21/10 [address] [place] [phone] None, Provider PCP - General 08/22/10 documented as of this encounter
[2022-06-07 15:22] LABS: Chlamydia Result Negative (Negative); GC Result Negative (Negative)
== END 2022-06-06 10:37 | disposition home or self-care (01) ==
LOC: NCHCN 10:36
PROVIDERS: PCP Nurse Practitioner Family; Visit Provider Nurse Practitioner Family
DX: Z12.4 Encounter for screening for malignant neoplasm of cervix (principal); Z11.51 Encounter for screening for human papillomavirus (HPV)
CPT/HCPCS: 87491; 87591; 88142; 87624

== ENCOUNTER 2024-12-14 14:01 | Outpatient (CLI) | payer MEDICAID, SELFPAY ==
[2024-12-14 13:31] LABS: Abs Immature Grans 0.03 10^3/uL (0.0-0.06); Absolute Basophil Count 0.02 10^3/uL (0.0-0.2); Absolute Eosinophil Count 0.09 10^3/uL (0.0-0.7); Absolute Lymphocyte Count 1.56 10^3/uL (1.2-3.4); Absolute Monocyte Count 0.55 10^3/uL (0.1-0.8); Absolute Neutrophil Count 6.22 10^3/uL (1.2-6.7); Basophils % 0.2 %; Eosinophils % 1.1 %; HCT 39.2 % (36.0-46.0); HGB 13.2 g/dL (11.2-15.7); Immature Grans % 0.4 %; Lymphocytes % 18.4 %; MCHC 33.7 % (32.0-36.0); MCV 89 fL (80-95); MPV 8.8 fL (8.0-11.0); Monocytes % 6.5 %; Neutrophils % 73.4 %; Platelet Count 415 10^3/uL (130-400); RDW 12.6 % (11.7-14.6); RDW-SD 40.8 fL; WBC 8.47 10^3/uL (4.4-10.8)
[2024-12-14 13:55] LABS: Anion Gap 3.7 mmol/L (3-11); BUN 12 mg/dL (7-18); CO2 30.3 mmol/L (21.0-32.0); CREATININE 0.8 mg/dL (0.55-1.02); Calcium 9.3 mg/dL (8.5-10.1); Chloride 107 mmol/L (98-107); Estimated GFR 91.97 (mL/min/1.73m2); Glucose 104 mg/dL (74-106); Sodium 141 mmol/L (136-145); Uric Acid 4.5 mg/dL (2.6-6.0)
== END 2024-12-14 14:02 | disposition home or self-care (01) ==
LOC: LBO 14:02
PROVIDERS: PCP Nurse Practitioner Family; Visit Provider Nurse Practitioner Family
DX: M25.561 Pain in right knee (principal)
CPT/HCPCS: 36415; 80048; 84550; 85025

== ENCOUNTER 2024-12-15 10:44 | Outpatient (CLI) | payer MEDICAID, SELFPAY ==
--- NOTE | 2024-12-15 10:30 | DI.RAD_ITS ---
Exam(s) XR KNEE RT 3V AP,LAT,HAYDEN EXAM: XR KNEE RT 3V AP,LAT,HAYDEN CLINICAL HISTORY: eval pathology M25.561 PAIN RT KNEE. TECHNIQUE: 2D digital imaging was performed. COMPARISON: No exams were available for comparison FINDINGS: 3 views No evidence acute fracture. There appears to be a small amount of increased joint fluid in the supra patellar bursa and there is a small 3 millimeter calcific density seen in the suprapatellar bursa, po ssibly a loose intra-articular body. There are no obvious osteochondral defects. There are mild-mod erate degenerative changes in the medial compartment. There is chondrocalcinosis seen in both medial lateral compartments. No osseous lesions. IMPRESSION: Mild-moderate degenerative changes in the medial compartment. Chondrocalcinosis. Small calcific density in the suprapatellar bursa region measuring 3 mm. This may represent a loose intra-articular body. DATA REPOSITORY: RADIATION DOSE DELIVERED:
== END 2024-12-15 11:04 ==
LOC: DI 10:46
PROVIDERS: PCP Nurse Practitioner Family; Visit Provider Nurse Practitioner Family
DX: M25.561 Pain in right knee (principal)
CPT/HCPCS: 73562

== ENCOUNTER 2025-05-05 02:02 | Outpatient (CLI) | payer MEDICAID, SELFPAY ==
--- NOTE | 2025-05-05 | DI.MAMMO_ITS ---
Exam(s) MAMMO SCREENING EXAM: MAMMO SCREENING CLINICAL HISTORY: SCREENING,Z12.31. TECHNIQUE: Bilateral full field digital CC and MLO mammographic images were obtained with 3D tomosynthesis and utilizing computer aided detection (CAD). COMPARISON: None. This is a baseline screening mammogram on this 44-year-old FINDINGS: No CAD designations. There are no new spiculated masses nor malignant appearing microcalcification groups. There is no significant architectural distortion nor skin thickening-retraction. IMPRESSION: No radiographic evidence of malignancy. BI-RADS Category 1 - Negative Breast Density - Category B - There are scattered areas of fibroglandular density. Breast density Category C or D implies that the patient has dense breast tissue. Dense breast tissue can make it harder to find cancer on a mammogram. Dense breast tissue is also associated with an increased risk of breast cancer. This information about the result of the mammogram report was provided to the patient to raise their awareness. Use this report when you speak with the patient about their risks for breast cancer, which includes their family history. At that time, you may recommend additional screening tests (Ultrasound or MRI) as these tests may add significant information. A negative radiographic report should not delay biopsy if a dominant or clinically suspicious mass is present. Up to ten percent of cancers are not identified on mammography. A negative report may reinforce clinical impression. Adenosis and dense breasts may obscure an underlying neoplasm. False positive reports average 6 to 10%. Patient will receive a letter notifying them of these results.
== END 2025-05-05 02:22 ==
LOC: DI 02:02
PROVIDERS: PCP Nurse Practitioner Family; Visit Provider Nurse Practitioner Family
DX: Z12.31 Encounter for screening mammogram for malignant neoplasm of breast (principal); R92.323 Mammographic fibroglandular density, bilateral breasts
CPT/HCPCS: 77063; 77067

== ENCOUNTER 2025-10-11 15:36 | Outpatient (REF) | payer MEDICAID, SELFPAY ==
[2025-10-11 14:43] LABS: HCT 36.8 % (36.0-46.0); HGB 12.0 g/dL (11.2-15.7); MCH 29.3 pg (27.0-33.0); MCHC 32.6 % (32.0-36.0); MCV 90 fL (80-95); MPV 9.6 fL (8.0-11.0); Platelet Count 402 10^3/uL (130-400); RBC 4.09 10^6/uL (3.93-5.22); RDW 12.3 % (11.7-14.6); RDW-SD 40.2 fL; WBC 5.33 10^3/uL (4.4-10.8)
[2025-10-11 15:06] LABS: Hemoglobin A1C 5.4 % (<5.7)
[2025-10-11 15:25] LABS: ALT 14 U/L (10-49); AST 16 U/L (<34); Albumin 4.2 g/dL (3.2-5.0); Alkaline Phosphatase 66 U/L (46-116); Anion Gap 7.9 mmol/L (3-11); BUN 16 mg/dL (9-23); Bilirubin, Total 0.4 mg/dL (0.2-1.2); CO2 27.1 mmol/L (20.0-31.0); Calcium 9.2 mg/dL (8.3-10.6); Chloride 106 mmol/L (98-107); Cholesterol 157 mg/dL (<200); Glucose 108 mg/dL (74-106); HDL Cholesterol 49 mg/dL (>40); Potassium 4.2 mmol/L (3.5-5.1); Sodium 141 mmol/L (136-145); Total Protein 7.0 g/dL (5.7-8.2)
== END 2025-10-11 15:37 | disposition home or self-care (01) ==
LOC: NCHCN 15:36
PROVIDERS: PCP Nurse Practitioner Family; Visit Provider Nurse Practitioner Family
DX: Z00.00 Encounter for general adult medical examination without abnormal findings (principal); Z13.1 Encounter for screening for diabetes mellitus; Z13.220 Encounter for screening for lipoid disorders
CPT/HCPCS: 80053; 80061; 85027; 83036